=== PATIENT | female | born 1990 | race Caucasian/White ===

== ENCOUNTER → 2017-12-29 | Outpatient (CLI) | payer BC ==
[~2017-12-29] VITALS: Ht 170.2 cm; Wt 114.7 kg
[~2017-12-29] MED LIST: CLONAZEPAM 0.50.5 M1 PO; CYMBALTA60 MG PO; DEPAKOTE ER500 MG PO; LABETALOL HCL100 MG PO; LIORESAL 10 MG10 MG PO; PERCOCET 10-321 EACH PO; REMERON15 MG PO
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
[2017-12-29 09:05] VITALS: BP 110/65
== END ==
LOC: PAIN 07:44
DX: E66.01 Morbid (severe) obesity due to excess calories (principal); G47.00 Insomnia, unspecified; F32.9 Major depressive disorder, single episode, unspecified; G89.4 Chronic pain syndrome; F17.200 Nicotine dependence, unspecified, uncomplicated; E28.1 Androgen excess

== ENCOUNTER → 2018-01-26 | Outpatient (CLI) | payer BC ==
[~2018-01-26] VITALS: Ht 170.2 cm; Wt 116.4 kg
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
[2018-01-26 10:12] VITALS: BP 131/91
== END ==
LOC: PAIN 01:00
DX: G89.4 Chronic pain syndrome (principal); M79.651 Pain in right thigh; G47.00 Insomnia, unspecified; F32.9 Major depressive disorder, single episode, unspecified; E66.01 Morbid (severe) obesity due to excess calories; F17.200 Nicotine dependence, unspecified, uncomplicated; Z68.41 Body mass index [BMI] 40.0-44.9, adult; Z79.899 Other long term (current) drug therapy

== ENCOUNTER → 2018-02-23 | Outpatient (CLI) | payer BC ==
[~2018-02-23] VITALS: Ht 170.2 cm; Wt 118.8 kg
[2018-02-23 11:09] VITALS: BP 136/84
--- NOTE | 2018-02-23 11:15 | NUR ---
Pain Clinic Assessment: 1. History of Osteoarthritis: NO History of Rheumatoid Arthritis: NO 2. Height: 5 ft. 7 in. 170.2 cm. Weight: 262.0 lb. oz. 118.843 kg. Patient's BMI: 41.0 3. Vital Signs: BP: 136/84 Pulse: 74 Resp: 16 Temp: 02 Sat: 96 ECG Mon: 4. Pain Intensity: 7 5. Fall Risk: Dizziness: N Needs help standing or walking: N Fallen in the last 3 months: N Fall risk comments: 6. Patient on Blood Thinner: None 7. History of Hypertension: Y 8. Opioid Therapy greater than 6 weeks: Y Opiate Contract Signed: 12/29/17 9. Risk Assessment Tool Provided: 3-LOW RISK 10. Functional Assessment Tool: / 11. Recreational Drug Use: Past greater than 3 mos Drug Type: Tobacco Use: Current Every Day Smoker Tobacco Type: Amount or Packs/day: How Many Years: Alcohol Use: Yes Frequency: Quant:
--- NOTE | 2018-02-24 08:02 | HPC ---
[facility] [place] [address] PAIN MANAGEMENT CONSULTATION Name: LUPE MICHEL ROSSI Room #: REG TRICIA Lynn#: [id number] Admission: 02/23/18 Attend Phys: Radha Cerna Discharge: Date of : 88 Report #: [id number] THIS REPORT FOR: //name// CC: Radha CHARLESICE MERY SAUCEDO DATE OF SERVICE: 02/23/2018 CHIEF COMPLAINT: Chronic right leg pain. HISTORY OF PRESENT ILLNESS: The patient returns to the pain clinic today for refill of her medicines for her complex regional pain syndrome like symptoms in her right thigh that she has managed with her pain medicine of oxycodone 10/325. She also wanted to discuss a possible lidocaine infusion. Dr. Saucedo had mentioned this to her in the past, stating that might be helpful to see if it decreases her pain and he told her if that was the case and she had a successful treatment test of her lidocaine infusion then he would possibly move her spinal cord stimulator to a peripheral spinal cord stimulator per the patient's report. I told her that we would need to see if Dr. Saucedo's office is doing that or if he was thinking that we would do that, but we would need for her to contact him. She tells me that she has right thigh pain at 7/10, worse with riding in a car, having anything touch it. She tells me that nothing really helps this. The pain medicine helps some. She has decreased her smoking some and was walking a little bit, but with the recent weather she has been stuck in her house and not walking outside like she was and very tearful at times during this visit today. She would like a refill of her medication or an increase if possible she states or at least not a decrease in her medication. CURRENT ALLERGIES: MORPHINE. CURRENT LIST OF MEDICATIONS: Oxycodone 10/325 one-half to one tablet b.i.d., clonazepam 0.5 mg daily, Depakote ER 500 mg twice a day, labetalol 100 mg twice a day, Cymbalta 120 mg daily, mirtazapine 30 mg at bedtime and baclofen 10 mg every 6 hours. PQRS: 1. Denies history of osteoarthritis or rheumatoid arthritis. 2. Height is 5 feet 7 inches, weight is 262, BMI is 41. 3. Vital signs: Blood pressure 136/84, pulse is 74, respirations 16, oxygen sat is 96%. 4. Pain score 7/10. 5. Fall risk, denies dizziness, does not need help walking or standing, has not fallen in the last 3 months. 6. She is not on any blood thinners and does have a history of hypertension. 7. Opioid therapy is greater than 6 weeks, therefore an opioid signed contract [address] [address] PAIN MANAGEMENT CONSULTATION Name: LUPE MICHEL ROSSI Room #: REG [facility] DerikJose.#: [id number] Admission: 02/23/18 Attend Phys: Radha Cerna Discharge: Date of : 88 Report #: [id number] is on the chart. 8. Risk assessment tool is low. Her functional assessment is 56/70. 9. Recreational drug use in the past 3 months per the patient, she does smoke currently every day and she does drink occasionally alcohol. Per the prescription monitoring system, she lives in an area where it does not be reported that she is on time for her medication refill per our last visit. PHYSICAL EXAMINATION: GENERAL: This is a well-developed, well-nourished female who appears her stated age. Alert and oriented, alert at times upbeat in a lot very depressed and tearful throughout the visit. HEENT: Reveals mucous membranes that are moist. Normocephalic, atraumatic. Extraocular eye muscles are intact. NEUROLOGICAL: She complains of tenderness to the touch of right thigh, sensitive to the touch even with jeans. Strength is slightly diminished in the right leg of 4/5. ASSESSMENT: 1. Depression associated with chronic pain syndrome. 2. Unusual hypersensitivity of the right thigh, unsure if it is complex regional pain syndrome. 3. 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 4. Morbid obesity. 5. Tobacco use. 6. Insomnia. We reviewed the fact that opiate medications are being used to provide analgesia adequate to support activities of daily living, not attempting to achieve a specific pain score on the 0-10 Visual Analog Scale. The current opiate medications are providing sufficient analgesia to allow the patient to participate in activities of daily living. The patient is not exhibiting any aberrant behavior suggestive of drug diversion. The patient is not having any adverse reactions to medications. The patient is not suffering from daytime somnolence or mental acuity changes. The patient is managing opiate-induced constipation with appropriate [id number]-[id number] agents and dietary considerations. The patient was counseled on concern for caution with operating a motor vehicle while using opiate medications. A physical exam was performed and the patient's functional status was evaluated. All patients with back pain were advised against the bed rest greater than 4 days and were advised to return to normal activities. Pain score assessment was noted and the treatment plan was reviewed with the patient. All current medications, both prescribed and OTC were reviewed and reconciled on the electronic medical record. Tobacco screening was accomplished and smoking cessation was advised when indicated. BMI was noted and diet/exercise [facility] [address] [address] PAIN MANAGEMENT CONSULTATION Name: LUPE MICHEL Room #: REG [facility] M..#: [id number] Admission: 02/23/18 Attend Phys: Radha Cerna Discharge: Date of : 88 Report #: [id number] modification was recommended for all patients following outside normal parameters. I reviewed with the patient today their responsibilities to safeguard prescription medications, reviewed their responsibility to utilize medications only as prescribed by the physician. They are to seek and receive pain medications only from 1 physician group ( [facility]). They are to use 1 pharmacy and keep the clinic informed if they change pharmacies. Their responsibilities include making followup visits in a timely fashion and to avoid abrupt discontinuation of medication usage. Their responsibilities further include bringing their medications (bottles from the pharmacy with residual pills) to the visit for possible confirmation of pill counts and the patient understands it is their responsibility to submit to random drug screens to ensure both that the medications prescribed are present, and that no other controlled substances are present. All prescriptions provided today were generated electronically. PLAN: 1. The patient is here to discuss treatment options. She tells me Dr. Saucedo has mentioned to her about a lidocaine infusion to see if that helps her complex regional pain-like symptoms. I encouraged the patient to call Dr. Saucedo's office to see if he was planning on doing that or if they were wanting Dr. Gao to do that. We have no notes regarding this and we would like to have some clarification if that is with Dr. Saucedo was thinking have it sent to our office. The patient tells me that he talked about the lidocaine infusion and then if that was helpful in decreasing her pain, he talked about moving her spinal cord stimulator to a peripheral nerve stimulator to help with her symptoms. Again, I request this in writing. She is to contact Dr. Saucedo's office to have them send something. We would gladly get her approved for lidocaine infusion if that is what Dr. Saucedo request of Dr. Gao would do that to see if it is helpful. We will await paperwork from his office. 2. The patient tells me that she is having increased spasm, tearful at times. She said her CP has been well controlled. I asked her, she has been taking her baclofen 4 times a day, she says not. I encouraged her to increase her baclofen use to see if that helps with some of her spasticity. 3. The patient was tearful when discussing her pain medicine hoping that would not be decreasing it and asked if we could possibly increase it or at least leave it where it was. I explained to her that we will not increase her pain medicine, but we could keep her Percocet 10/325 at 75 pills, that allows her to take 2 every day and occasionally 3. Drug screen also collected today. 4. I encouraged the patient to decrease her smoking again, trying to wean off of it. This will help her pain, especially with her diagnosis of complex regional pain like symptoms. The patient will try to decrease her smoking even more than she has already. 5. The patient is seen in collaboration with Dr. Rohit Gao. She will return in 1 month's time. Hopefully, at that time, we will also have dictation [facility] [address] [place] [address] PAIN MANAGEMENT CONSULTATION Name: LUPE MICHEL Room #: REG TRICIA Lynn#: [id number] Admission: 02/23/18 Attend Phys: Radha Cerna Discharge: Date of : 88 Report #: [id number] or direction from Dr. Saucedo's office. The patient seen in collaboration with Dr. Rohit Gao. <ELECTRONICALLY SIGNED> By: Radha Cerna 02/24/18 0802 [id number] Radha Cerna /nt
== END ==
LOC: PAIN 07:08
DX: M25.551 Pain in right hip (principal); G89.4 Chronic pain syndrome; G47.00 Insomnia, unspecified; E66.01 Morbid (severe) obesity due to excess calories; F17.200 Nicotine dependence, unspecified, uncomplicated; F32.9 Major depressive disorder, single episode, unspecified; Z68.41 Body mass index [BMI] 40.0-44.9, adult; Z79.899 Other long term (current) drug therapy

== ENCOUNTER → 2018-03-23 | Outpatient (CLI) | payer BC ==
[~2018-03-23] VITALS: Ht 170.2 cm; Wt 121.8 kg
[2018-03-23 10:20] VITALS: BP 121/83
--- NOTE | 2018-03-23 10:37 | NUR ---
Pain Clinic Assessment: 1. History of Osteoarthritis: NO History of Rheumatoid Arthritis: NO 2. Height: 5 ft. 7 in. 170.2 cm. Weight: 268.6 lb. oz. 121.836 kg. Patient's BMI: 42.1 3. Vital Signs: BP: 121/83 Pulse: 71 Resp: 16 Temp: 02 Sat: 98 ECG Mon: 4. Pain Intensity: 7 5. Fall Risk: Dizziness: N Needs help standing or walking: N Fallen in the last 3 months: N Fall risk comments: 6. Patient on Blood Thinner: None 7. History of Hypertension: Y 8. Opioid Therapy greater than 6 weeks: Y Opiate Contract Signed: 12/29/17 9. Risk Assessment Tool Provided: 3-LOW RISK 10. Functional Assessment Tool: 11. Recreational Drug Use: Past greater than 3 mos Drug Type: Tobacco Use: Current Every Day Smoker Tobacco Type: Cigarettes Amount or Packs/day: 0.5 How Many Years: 10 Alcohol Use: Yes Frequency: Weekly Quant: 1-2 WHISKEY SHOTS
--- NOTE | 2018-03-24 07:19 | HPC ---
[facility] [place] [address] PAIN MANAGEMENT CONSULTATION Name: LUPE MICHEL Room #: REG [facility] [id number] Admission: 03/23/18 Attend Phys: Radha Cerna Discharge: Date of : 88 Report #: [id number] THIS REPORT FOR: //name// CC: Rahda ORDONEZ DATE OF SERVICE: 03/23/2018 CHIEF COMPLAINT: Chronic right leg pain. HISTORY OF PRESENT ILLNESS: The patient returns to the pain clinic today for refill of her medication of oxycodone. The patient tells me she takes 2-3 tablets a day for her right anterior thigh pain and occasional low back pain. She does tell me today that she is having pain across her lower back, upper buttock area that shoots up her back and down into her right leg. This has been going on a few days, worse when she has been walking. She tells me her pain score is about a 7 today. She does use her spinal cord stimulator. She has worse pain when riding in the car. She has not decreased her smoking. She continues to smoke about 2 cigarettes a day. She is wondering about whether we receive records from Dr. Saucedo's office regarding a lidocaine infusion. The patient would like to learn more about that and also refill of her medications. ALLERGIES: MORPHINE. CURRENT LIST OF MEDICATIONS: Oxycodone 10/325 half to one tablet 3 times a day, clonazepam 0.5 mg b.i.d. as needed, Depakote ER 500 mg twice a day, labetalol 100 mg twice a day, Cymbalta 120 mg daily, mirtazapine 30 mg at bedtime and baclofen 10 mg up to 4 times a day. The patient's PQRS, 1. Denies osteoarthritis or rheumatoid arthritis. 2. Height of 5 feet 7 inches, weight is 268, BMI is 42. 3. Vital signs, blood pressure 121/83, pulse of 71, respirations 16, oxygen sat is 98%. 4. Pain score is 7. 5. Fall risk. She denies dizziness. Does not need help walking or standing, has not fallen in the last 3 months. 6. The patient is not on any blood thinners, does take medicine for hypertension. 7. Opioid therapy is greater than 6 weeks; therefore, an opioid signed contract is on the chart. 8. Her risk assessment tool is low. Her functional assessment is 56/70. 9. The patient states recreational drug use in the past and currently smokes about 2 cigarettes a day and does drink alcohol. 10. We checked the prescription monitoring system. The patient is filling appropriately for her medications. The patient also had [place] [address] PAIN MANAGEMENT CONSULTATION Name: LUPE MICHEL Room #: REG CL Leah#: [id number] Admission: 03/23/18 Attend Phys: Radha Cerna Discharge: Date of : 88 Report #: [id number] her last visit and it is appropriate for the medications that she has told us about, the clonazepam, she takes on an as needed basis and that was negative that goes along with what the patient tells me, she does not take it every day. PHYSICAL EXAMINATION: GENERAL: This is a well-developed, well-nourished female who appears her stated age. She is alert and oriented. HEENT: Reveals mucous membranes that are moist. Normocephalic, atraumatic. Extraocular eye muscles are intact. NEUROLOGICAL: She complains of tenderness in her right upper thigh, also complains of pain across her lower back that radiates upward towards her back and down into her right leg. The patient has sensitivity to the touch on her right thigh. The patient's muscle strength is judged to be 5/5 bilaterally in all major muscle groups in her lower extremities. ASSESSMENT: 1. Depression associated with chronic pain. 2. Unusual hypersensitivity in the right thigh, unsure if it is complex regional pain syndrome. 3. Failed spinal cord stimulator, has a Nevro device that she does use occasionally. 4. Morbid obesity. 5. Tobacco use. 6. Insomnia. 7. We reviewed the fact that opiate medications are being used to provide analgesia adequate to support activities of daily living, not attempting to achieve a specific pain score on the 0-10 Visual Analog Scale. The current opiate medications are providing sufficient analgesia to allow the patient to participate in activities of daily living. The patient is not exhibiting any aberrant behavior suggestive of drug diversion. The patient is not having any adverse reactions to medications. The patient is not suffering from daytime somnolence or mental acuity changes. The patient is managing opiate-induced constipation with appropriate nqob-ndl-tibkkqk agents and dietary considerations. The patient was counseled on concern for caution with operating a motor vehicle while using opiate medications. A physical exam was performed and the patient's functional status was evaluated. All patients with back pain were advised against the bed rest greater than 4 days and were advised to return to normal activities. Pain score assessment was noted and the treatment plan was reviewed with the patient. All current medications, both prescribed and OTC were reviewed and reconciled on the electronic medical record. Tobacco screening was accomplished and smoking cessation was advised when indicated. BMI was noted and diet/exercise modification was recommended for all patients following outside normal parameters. [address] [place] [address] PAIN MANAGEMENT CONSULTATION Name: LUPE MICHEL Room #: REG Deborah Floyd.#: [id number] Admission: 03/23/18 Attend Phys: Radha DOMO [place]and Discharge: Date of : 88 Report #: [id number] I reviewed with the patient today their responsibilities to safeguard prescription medications, reviewed their responsibility to utilize medications only as prescribed by the physician. They are to seek and receive pain medications only from 1 physician group ( [facility]). They are to use 1 pharmacy and keep the clinic informed if they change pharmacies. Their responsibilities include making followup visits in a timely fashion and to avoid abrupt discontinuation of medication usage. Their responsibilities further include bringing their medications (bottles from the pharmacy with residual pills) to the visit for possible confirmation of pill counts and the patient understands it is their responsibility to submit to random drug screens to ensure both that the medications prescribed are present, and that no other controlled substances are present. All prescriptions provided today were generated electronically. PLAN: We discussed treatment options with the patient today. We did receive dictations from Dr. Saucedo's office. They would like Dr. Gao to discuss with the patient about a possible lidocaine infusion or a trial of a lateral femoral cutaneous nerve injection. I discussed these with the patient and will make an appointment with Dr. Gao for the next time. I explained to her that he may first proceed with an injection while we seek authorization for the lidocaine infusion if he thinks that is appropriate, the patient is agreeable with that. She tells me that she will have a regional intermodal truck driver that will bring her to her appointment in case she has an injection for the next visit. We will seek authorization for the lateral femoral cutaneous nerve injection right side. 8. Prescription given today for oxycodone 10/325. The patient takes 1/2-1 tablet 3 times a day, quantity #75 with no additional refills. 9. The patient seen in collaboration today with Dr. Rohit Gao. <ELECTRONICALLY SIGNED> By: Radha Cerna 03/24/18 0719 [id number] [id number] Radha Cerna /rubi
== END ==
LOC: PAIN 07:12
DX: M79.651 Pain in right thigh (principal); G89.29 Other chronic pain; R20.8 Other disturbances of skin sensation; F32.9 Major depressive disorder, single episode, unspecified; E66.01 Morbid (severe) obesity due to excess calories; G47.00 Insomnia, unspecified; K59.03 Drug induced constipation; F17.210 Nicotine dependence, cigarettes, uncomplicated; Z79.891 Long term (current) use of opiate analgesic; Z79.899 Other long term (current) drug therapy; Z68.41 Body mass index [BMI] 40.0-44.9, adult

== ENCOUNTER → 2018-04-20 | Outpatient (CLI) | payer BC ==
[~2018-04-20] VITALS: Ht 170.2 cm; Wt 122.9 kg
[~2018-04-20] MED LIST changes: +OXYCODON-ACETA1 EAC1 PO
--- NOTE | ~2018-04-20 | HPC ---
[facility] [place] [address] [place] [address] PAIN MANAGEMENT CONSULTATION Name: LUPE MICHEL Room #: REG TRICIA Lalito.#: [id number] Admission: 04/20/18 ������������������ Attend Phys: Rohit Gao MD Discharge: ������������������ Date of : 88 Report #: [id number] THIS REPORT FOR: //name// CC: NORMA Gao DATE OF SERVICE: 04/20/2018 Followup visit for chronic pain, right leg with complex regional pain syndrome. The patient is here today in the pain clinic to discuss lidocaine infusion. This was presented by Dr. Christopher Saucedo. She has a complicated history with significant biopsychosocial features to her chronic pain. Please see my original dictation from 12/29/2017. We talked about other measures of managing her pain and she has been told that this can be helpful for some patients. I shared with her our experience with lidocaine infusions. We have had selected patients who have been resistant to other treatments and lidocaine infusion provided over 6 hours has provided some lasting relief, particularly in a couple of patients with CRPS. The sodium channel blocking effect seem to have some resetting effect on chronic nerve impulses and can provide relief that she has not seen now with all of the other aggressive treatments that she has had. We will set her up for the infusion. If it helps, we can continue use it intermittently as a tool for her long-term management. I would like to avoid increasing any of her current medications. She is on oxycodone 10/325 and today I have recommended that we reduce it slightly from oxycodone 10/325, 75 tablets per month to oxycodone 7.5 three tablets that she can take one morning, noon and then at night to help her sleep. We did check drug screen at her last visit. It was positive for oxycodone and mirtazapine. There were no unsuspected entries. We will check the prescription drug monitoring program and then if no unexpected entries there either. PHYSICAL EXAMINATION: GENERAL: This is depressed female. VITAL SIGNS: Blood pressure is 124/78, heart rate 70, respirations 16. BMI is 42.4. CHEST: Clear. CARDIAC: Rhythm is regular. MUSCULOSKELETAL: Reveals tenderness along the right thigh and hypersensitivity. She is slightly weak to hip flexion, leg extension. Deep tendon reflexes are 1+ at knees, ankles, biceps and triceps. Gait has antalgic features. IMPRESSION: [facility] [address] [place] [address] PAIN MANAGEMENT CONSULTATION Name: LUPE MICHEL Room #: REG TRICIA StarkeyFloyd#: [id number] Admission: 04/20/18 ������������������ Attend Phys: Rohit Gao MD Discharge: ������������������ Date of : 88 Report #: [id number] 1. Chronic right leg pain. 2. Atypical features, but some consistency with chronic regional pain syndrome. RECOMMENDATIONS: Lidocaine infusion. We will seek preauthorization to go forward with this treatment. ��������������������������������������������� ���������������������������������������� By: ��������������������������������������������� 1741 [id number] Rohit Gao MD /rubi
[2018-04-20 10:53] VITALS: BP 124/78
--- NOTE | 2018-04-20 11:38 | NUR ---
Pain Clinic Assessment: 1. History of Osteoarthritis: NO History of Rheumatoid Arthritis: NO 2. Height: 5 ft. 7 in. 170.2 cm. Weight: 271.0 lb. oz. 122.925 kg. Patient's BMI: 42.4 3. Vital Signs: BP: 124/78 Pulse: 70 Resp: 16 Temp: 02 Sat: 97 ECG Mon: 4. Pain Intensity: 7 5. Fall Risk: Dizziness: N Needs help standing or walking: N Fallen in the last 3 months: N Fall risk comments: 6. Patient on Blood Thinner: None 7. History of Hypertension: Y 8. Opioid Therapy greater than 6 weeks: Y Opiate Contract Signed: 12/29/17 9. Risk Assessment Tool Provided: 3-LOW RISK 10. Functional Assessment Tool: 11. Recreational Drug Use: Past greater than 3 mos Drug Type: Tobacco Use: Current Every Day Smoker Tobacco Type: Cigarettes Amount or Packs/day: 2 CIGS How Many Years: Alcohol Use: Yes Frequency: Special Occasions Quant:
== END ==
LOC: PAIN 06:52
DX: M79.604 Pain in right leg (principal); G89.29 Other chronic pain; Z79.899 Other long term (current) drug therapy

== ENCOUNTER → 2018-06-22 | Outpatient (CLI) | payer BC ==
[~2018-06-22] VITALS: Ht 170.2 cm; Wt 122.9 kg
[~2018-06-22] MED LIST changes: +AMITRIPTYLINE H50 M2 PO; +OXYCODONE-ACET1 EAC2 PO
[2018-06-22 09:28] VITALS: BP 128/89
--- NOTE | 2018-06-22 09:36 | NUR ---
Pain Clinic Assessment: 1. History of Osteoarthritis: NO History of Rheumatoid Arthritis: NO 2. Height: 5 ft. 7 in. 170.2 cm. Weight: 271.0 lb. oz. 122.925 kg. Patient's BMI: 42.4 3. Vital Signs: BP: 128/89 Pulse: 80 Resp: 16 Temp: 02 Sat: 98 ECG Mon: 4. Pain Intensity: 9 5. Fall Risk: Dizziness: N Needs help standing or walking: N Fallen in the last 3 months: N Fall risk comments: 6. Patient on Blood Thinner: None 7. History of Hypertension: Y 8. Opioid Therapy greater than 6 weeks: Y Opiate Contract Signed: 12/29/17 9. Risk Assessment Tool Provided: 3-LOW RISK 10. Functional Assessment Tool: / 11. Recreational Drug Use: Past greater than 3 mos Drug Type: Tobacco Use: Current Every Day Smoker Tobacco Type: Amount or Packs/day: How Many Years: Alcohol Use: Yes Frequency: Quant:
--- NOTE | 2018-06-23 07:53 | HPC ---
[facility] [place] [address] PAIN MANAGEMENT CONSULTATION Name: LUPE MICHEL Room #: REG [facility] Leah#: [id number] Admission: 06/22/18 ������������������ Attend Phys: Radha Cerna Discharge: ������������������ Date of : 88 Report #: [id number] THIS REPORT FOR: //name// CC: Radha Saucedo MD DATE OF SERVICE: 06/22/2018 CHIEF COMPLAINT: Chronic pain, right leg with complex regional pain syndrome. HISTORY OF PRESENT ILLNESS: This is a 27-year-old female who returns to the pain clinic today for refill of her medications. She tells me that her pain is slightly worse today than it had been in the past, rating it as a 9 today. She feels that the lidocaine infusion that Dr. Gao performed in April made her symptoms worse. She feels that her right thigh and one particular area is on fire ever since her lidocaine infusion. She tells me that it is a burning, shooting, sharp pain, worse with riding in the car, cold weather and movement. She does use her medications that she finds very beneficial and helps knock her pain down and able to function. She understands that she will not be 100%, but she says "I am better when I do take my pain medicines." She does also use her spinal cord stimulator to aid in pain control. The patient tells me that she denies any problems with constipation or daytime sleepiness. She does question if Botox would be helpful in treating this leg pain. Her mom was wondering about that. ALLERGIES: MORPHINE. CURRENT PAIN MEDICATIONS: Oxycodone 10/325 up to 3 times a day p.r.n., amitriptyline 50 mg at bedtime, clonazepam 0.5 mg b.i.d., Depakote ER 500 mg b.i.d., labetalol 100 mg b.i.d., Cymbalta 120 mg daily, mirtazapine 30 mg at bedtime and baclofen 10 mg p.r.n. PQRS: 1. She denies any history of osteoarthritis or rheumatoid arthritis. 2. Height is 5 feet 7 inches, weight is 271. BMI is 42. 3. Vital signs 128/89, pulse is 80, respirations 16, oxygen sat is 98. 4. Pain score is 9/10. 5. Fall risk. Denies dizziness. Does not need help walking or standing. Has not fallen in the last 3 months. She is not on any blood thinners, but does take medicine for hypertension. 6. Opioid therapy is greater than 6 weeks; therefore, an opioid signed contract is on the chart. 7. Her risk assessment tool is low. Her functional assessment is 56/70. 8. Recreational drug use, she denies. She is a smoker of 2 cigarettes a day [place] [address] PAIN MANAGEMENT CONSULTATION Name: LUPE MICHEL Room #: REG [facility] Lynn#: [id number] Admission: 06/22/18 ������������������ Attend Phys: Radha Cerna Discharge: ������������������ Date of : 88 Report #: [id number] We did check the prescription monitoring system. The patient is due on Friday to fill her medications from her recent early fill for a vacation in the last month. There is a recent drug screen on the chart, which is appropriate. The patient tells me she does safeguard her medications at all times. PHYSICAL EXAMINATION: GENERAL: This is a 27-year-old female who appears her stated age, placing her pain score today at 9/10, slightly depressed in affect. HEENT: Normocephalic, atraumatic. Extraocular eye muscles are intact. Mucous membranes are moist. EXTREMITIES: Reveals tenderness on her right thigh and hypersensitivity. Her gait is antalgic. The patient does have some lower back pain that radiates towards her right thigh as well. Muscle strength is judged to be 5/5 bilaterally in all major muscle groups in her lower extremities. IMPRESSION: 1. Chronic leg pain. 2. Atypical features, some consistency of complex regional pain syndrome of the right thigh. 3. Failed spinal cord stimulator, has a Nevro device. 4. Morbid obesity. 5. Tobacco use. We reviewed the fact that opiate medications are being used to provide analgesia adequate to support activities of daily living, not attempting to achieve a specific pain score on the 0-10 Visual Analog Scale. The current opiate medications are providing sufficient analgesia to allow the patient to participate in activities of daily living. The patient is not exhibiting any aberrant behavior suggestive of drug diversion. The patient is not having any adverse reactions to medications. The patient is not suffering from daytime somnolence or mental acuity changes. The patient is managing opiate-induced constipation with appropriate ksin-xka-yrmiqfd agents and dietary considerations. The patient was counseled on concern for caution with operating a motor vehicle while using opiate medications. A physical exam was performed and the patient's functional status was evaluated. All patients with back pain were advised against the bed rest greater than 4 days and were advised to return to normal activities. Pain score assessment was noted and the treatment plan was reviewed with the patient. All current medications, both prescribed and OTC were reviewed and reconciled on the electronic medical record. Tobacco screening was accomplished and smoking cessation was advised when indicated. BMI was noted and diet/exercise modification was recommended for all patients following outside normal parameters. [facility] [address] [place] [address] PAIN MANAGEMENT CONSULTATION Name: LUPE MICHEL Room #: REG [facility].#: [id number] Admission: 06/22/18 ������������������ Attend Phys: Radha DOMO Cerna Discharge: ������������������ Date of : 88 Report #: [id number] I reviewed with the patient today their responsibilities to safeguard prescription medications, reviewed their responsibility to utilize medications only as prescribed by the physician. They are to seek and receive pain medications only from 1 physician group ( [facility]). They are to use 1 pharmacy and keep the clinic informed if they change pharmacies. Their responsibilities include making followup visits in a timely fashion and to avoid abrupt discontinuation of medication usage. Their responsibilities further include bringing their medications (bottles from the pharmacy with residual pills) to the visit for possible confirmation of pill counts and the patient understands it is their responsibility to submit to random drug screens to ensure both that the medications prescribed are present, and that no other controlled substances are present. All prescriptions provided today were generated electronically. PLAN: 1. We discussed treatment options with the patient today. Unfortunately, the lidocaine infusion that Dr. Saucedo had wanted us to try did not need help the patient. In fact, it possibly made her pain increased and has had a flare since the procedure in April. The patient has not made a followup appointment with Dr. Saucedo yet. I encouraged her to do so to see what other options he may recommend. At one point, she did mention that he was discussing repositioning her spinal cord stimulator. Again, she will make an appointment with him in the near future. 2. The patient did ask about Botox seeing if that would help this nerve pain. I explained to her that usually Botox is used for muscles or migraines, or cosmetic. I am unaware that that would help with this nerve issue that she is having. 3. The patient's scripts given to her today for oxycodone 10/325 t.i.d., #75 to release today and in 4 weeks. The patient takes a half to 1 pill a day. We encouraged the use of sparingly lowest most effective dose and to increase activity as she is able. The patient tells me some days she is only requiring 2 pills a day. 4. We did talk about smoking cessation. She is down to 2 cigarettes a day. We discussed behavior modification and changing her after meal routine, which is when she typically smokes her cigarettes to see if she is able to alter that behavior and quit the last 2 cigarettes that she smokes per day. 5. Dr. Rohit Gao did see the patient and collaborated care today. The patient will be seen in 2 months' time. Hopefully, she will have seen Dr. Saucedo at that time. ��������������������������������������������� <ELECTRONICALLY SIGNED> ���������������������������������������� By: Radha Cerna ��������������������������������������������� 06/23/18 [id number] Radha Cerna /nt
== END ==
LOC: PAIN 06:40
DX: G89.4 Chronic pain syndrome (principal); M79.604 Pain in right leg; E66.01 Morbid (severe) obesity due to excess calories; F17.200 Nicotine dependence, unspecified, uncomplicated; Z68.41 Body mass index [BMI] 40.0-44.9, adult

== ENCOUNTER → 2018-08-17 | Outpatient (CLI) | payer BC ==
[~2018-08-17] VITALS: Ht 170.2 cm; Wt 121.7 kg
[2018-08-17 13:35] VITALS: BP 114/77
--- NOTE | 2018-08-17 13:58 | NUR ---
Pain Clinic Assessment: 1. History of Osteoarthritis: NO History of Rheumatoid Arthritis: NO 2. Height: 5 ft. 7 in. 170.2 cm. Weight: 268.4 lb. oz. 121.746 kg. Patient's BMI: 42.0 3. Vital Signs: BP: 114/77 Pulse: 69 Resp: 16 Temp: 02 Sat: 97 ECG Mon: 4. Pain Intensity: 9-10 5. Fall Risk: Dizziness: N Needs help standing or walking: N Fallen in the last 3 months: Y Fall risk comments: 6. Patient on Blood Thinner: None 7. History of Hypertension: Y 8. Opioid Therapy greater than 6 weeks: Y Opiate Contract Signed: 12/29/17 9. Risk Assessment Tool Provided: 3-LOW RISK 10. Functional Assessment Tool: / 11. Recreational Drug Use: Past greater than 3 mos Drug Type: Tobacco Use: Current Every Day Smoker Tobacco Type: Amount or Packs/day: How Many Years: Alcohol Use: Yes Frequency: Quant:
--- NOTE | 2018-08-19 10:06 | HPC ---
[facility] [place] [address] PAIN MANAGEMENT CONSULTATION Name: ANANDLUPE ROSSI Room #: REG TRICIA Lynn#: [id number] Admission: 08/17/18 ������������������ Attend Phys: Radha Cerna Discharge: ������������������ Date of : 88 Report #: [id number] THIS REPORT FOR: //name// CC: Radha CHARLESICE MERY DATE OF SERVICE: 08/17/2018 CHIEF COMPLAINT: Chronic pain of her right leg with complex regional pain syndrome. HISTORY OF PRESENT ILLNESS: This is a 27-year-old female who returns to the pain clinic today for refill of her medications. She tells me that her pain is slightly worse, 9/10 today due to a recent fall. She landed on her spinal cord stimulator and several other areas and she had increased pain since then in her lower back and her right thigh. She did call [facility] and they did check her system and is working fine. She has a burning, shooting and sharp pain in her right thigh and her lower back. She tells me that her pain is worse with riding in the car and movement. Pain is controlled with her spinal cord stimulator that she uses every day all day long and her medications. She denies any feelings of being overly medicated or problems with constipation. The patient tells me that she is going to [place] later in this week for 10 days. She is requesting an early refill by 2 days for her medications and also wondering how she should deal with her spinal cord stimulator when she travels. The patient is going to see Dr. Christopher Saucedo in October for possible revision of her spinal cord stimulator. ALLERGIES: MORPHINE. CURRENT LIST OF MEDICATIONS: Oxycodone 10/325 half to one tablet 3 times a day p.r.n., amitriptyline 50 mg at bedtime, clonazepam 0.5 mg b.i.d., Depakote ER 500 mg b.i.d., Trandate 100 mg b.i.d., Cymbalta 120 mg daily, Remeron 30 mg at bedtime and baclofen 10 mg p.r.n. PQRS: 1. She denies any history of osteoarthritis or rheumatoid arthritis. 2. Height is 5 feet 7 inches, weight is 268, BMI is 42. 3. Vital signs: Blood pressure 114/77, pulse is 69, respirations 16, oxygen sat is 97%. 4. Pain score 9/10. 5. Denies dizziness. She does not need help with walking or standing and has fallen in the last 3 months. 6. The patient is not on any blood thinners, but does take medications for hypertension. 7. Opioid therapy is greater than 6 weeks; therefore, an opioid signed contract [address] [address] PAIN MANAGEMENT CONSULTATION Name: ANANDLUPE [id number] Admission: 08/17/18 ������������������ Attend Phys: Radha Cerna Discharge: ������������������ Date of : 88 Report #: [id number] is on the chart. Her risk assessment tool is low. Functional assessment is 56/70. 8. Recreational drug use in the past, current smoker and does drink alcohol. We did not locate a prescription monitoring system, but we did speak with her pharmacy and they verified that she is filling there appropriately. There is a recent drug screen on the chart as well that is appropriate for her medications. PHYSICAL EXAMINATION: GENERAL: This is a 27-year-old female who appears her stated age. Placing her pain score today at 9/10, slightly depressed in her affect. HEENT: Normocephalic, atraumatic. Extraocular eye muscles are intact. Mucous membranes are moist. EXTREMITIES: Reveal tenderness in her right thigh and hypersensitivity, some electrical feelings. She has a slightly antalgic gait. Lower back pain radiates into her right thigh. Muscle strength is judged to be 5/5 bilaterally in all major muscle groups in her lower extremities. IMPRESSION: 1. Chronic leg pain. 2. Atypical features, some consistency with complex regional pain syndrome of the right thigh. 3. Spinal cord stimulator, has a Nevro device. 4. Morbid obesity. 5. Tobacco use. We reviewed the fact that opiate medications are being used to provide analgesia adequate to support activities of daily living, not attempting to achieve a specific pain score on the 0-10 Visual Analog Scale. The current opiate medications are providing sufficient analgesia to allow the patient to participate in activities of daily living. The patient is not exhibiting any aberrant behavior suggestive of drug diversion. The patient is not having any adverse reactions to medications. The patient is not suffering from daytime somnolence or mental acuity changes. The patient is managing opiate-induced constipation with appropriate canh-coo-wqepfxd agents and dietary considerations. The patient was counseled on concern for caution with operating a motor vehicle while using opiate medications. A physical exam was performed and the patient's functional status was evaluated. All patients with back pain were advised against the bed rest greater than 4 days and were advised to return to normal activities. Pain score assessment was noted and the treatment plan was reviewed with the patient. All current medications, both prescribed and OTC were reviewed and reconciled on the electronic medical record. Tobacco screening was accomplished and smoking cessation was advised when indicated. BMI was noted and diet/exercise modification was recommended for all patients following outside normal [address] [address] PAIN MANAGEMENT CONSULTATION Name: LUPE MICHEL Room #: REG [facility].#: [id number] Admission: 08/17/18 ������������������ Attend Phys: Radha Cerna Discharge: ������������������ Date of : 88 Report #: [id number] parameters. I reviewed with the patient today their responsibilities to safeguard prescription medications, reviewed their responsibility to utilize medications only as prescribed by the physician. They are to seek and receive pain medications only from 1 physician group ( [facility]). They are to use 1 pharmacy and keep the clinic informed if they change pharmacies. Their responsibilities include making followup visits in a timely fashion and to avoid abrupt discontinuation of medication usage. Their responsibilities further include bringing their medications (bottles from the pharmacy with residual pills) to the visit for possible confirmation of pill counts and the patient understands it is their responsibility to submit to random drug screens to ensure both that the medications prescribed are present, and that no other controlled substances are present. All prescriptions provided today were generated electronically. PLAN: 1. We discussed treatment options with the patient today. The patient is going on vacation and is requesting early refill of her medications. We will release that 2 days early, which is still prior to her leaving for her vacation. We did explain to her that she will need to make her medications last just because she received them early, they still need to last 30 days from the last time she filled her medication, so therefore, she will not be due until 09/24/2018 for her next refill of her prescriptions. The patient verbalizes understanding. 2. I encouraged the patient to make sure she had her Nevro spinal cord stimulator device card with her and to carry on her recharging device with her when she goes through security and to have her spinal cord stimulator off when she goes through security. She verbalizes understanding and she thought about not taking it, but I reminded her that with her use currently of almost 24 hours a day if she went without her spinal cord device for 10 days, her pain would significantly increase. 3. Prescriptions given today for her oxycodone #75 for today release and 4-week release. 4. I discussed this patient with Dr. Justino Barr who collaborated care today who is covering for Dr. Rohit Gao. ��������������������������������������������� <ELECTRONICALLY SIGNED> ���������������������������������������� By: Radha Cerna ��������������������������������������������� 08/19/18 [id number] Radha Cerna /nt
== END ==
LOC: PAIN 10:32
DX: G90.521 Complex regional pain syndrome I of right lower limb (principal); E66.01 Morbid (severe) obesity due to excess calories; F17.210 Nicotine dependence, cigarettes, uncomplicated; Z68.41 Body mass index [BMI] 40.0-44.9, adult

== ENCOUNTER → 2018-10-05 | Outpatient (CLI) | payer BC ==
[~2018-10-05] VITALS: Ht 170.2 cm; Wt 117.0 kg
--- NOTE | ~2018-10-05 | HPC ---
[facility] [place] [place] [address] PAIN MANAGEMENT CONSULTATION Name: LUPE MICHEL Room #: REG [facility].#: [id number] Admission: 10/05/18 Attend Phys: Rohit Gao MD Discharge: Date of : 88 Report #: [id number] THIS REPORT FOR: //name// CC: NORMA Gao DATE OF SERVICE: 10/05/2018 Followup visit for chronic right leg pain with possible complex regional pain syndrome. Reported history of cerebral palsy. The patient returns to pain clinic today in followup for her opioid medication. She has chronic right leg pain. She has had a spinal cord stimulator placed, but has honestly not had a substantial time and adjustment to determine whether it is providing relief. Dr. Saucedo has considered even repositioning her leads. She has only had a couple of adjustments. I have suggested today to her that we get Diana back involved so that we can try to work through some protocols and see if we can get the stimulator to provide relief in her leg. She scores her daily leg pain is an 8/10. We tried a lidocaine infusion that was helpful only for moments. Pain was never substantially reduced by this treatment. Overall, she is having some good days and bad days. She typically walks in the morning or evening depending on the weather. She says she does this 4 times a week as I have recommended. She walks about a mile to her mother's house. She finds that taking oxycodone before she exercises is important and helpful. I have discussed with her smoking and she has dropped her tobacco use dramatically, but continues to smoke she says 1 cigarette every other day or so. I have told her it is time that she should quit. She is . She and her occasionally drink alcohol. She does this in a social setting. She does not appear to over-utilize alcohol. She does not have good diversion activities from what I can tell. I have encouraged her to seek out opportunities that will allow her to be more active without focusing on her pain. PHYSICAL EXAMINATION: GENERAL: She seems better to me today actually she was more conversant less emotional more than I remember seeing her in the past. She smiled more and was more responsive during conversations. VITAL SIGNS: Height is 5 feet 7 inches, weight 258 pounds, BMI is 40.4. [address] [address] PAIN MANAGEMENT CONSULTATION Name: LUPE MICHEL Room #: REG TR[facility]IA [facility].#: [id number] Admission: 10/05/18 Attend Phys: Rohit Gao MD Discharge: Date of : 89 Report #: [id number] pressure is 125/81, heart rate 70, respirations 16, O2 sat 98. She moves independently from sitting to standing position. Her gait is mildly antalgic. CHEST: Clear. CARDIAC: Rhythm is regular. ABDOMEN: Soft. There is no organomegaly. MUSCULOSKELETAL: Examination of the right leg reveals some allodynia across the top of her thigh in the L3-L4 distribution. There is no straight leg raising discomfort. Sensation is intact. She has small scars in the back from previous placement of spinal cord stimulator. They are nontender. All medications were reviewed and reconciled. She is on 3 antidepressants. I have asked her to discuss this with her psychiatrist. She is on Cymbalta, Remeron and amitriptyline as well as Depakote, clonazepam, oxycodone and baclofen. This high number of centrally acting drugs, I think, is a concern and we should work at tapering. I would taper drugs of similar classes. Should we continue the opioids? I believe so. I think that they are providing relief of her pain enough to allow her to be more physically active, which I think is critical to her recovery. Without them, she does not move. Her dose is in the moderate range taking on average 2-1/2 oxycodone 10 mg tablets per day. This equates to 25 mg of oxycodone or roughly 40 morphine milligram equivalents. She carefully safeguards her medication and is grateful for the relief that it provides. She denies any side effects. PLAN: Medications were renewed under terms of our written agreement. Urine drug screen reviewed, which was positive for medications prescribed oxycodone and mirtazapine. There was absence, however, of clonazepam, which is provided by her psychiatrist. She was given 20 minutes of consultation today regarding wellness behaviors and activities. Encouraged her towards optimism and towards meaningful life activities. We talked about things that are in her control and things that are out of her control. We can control her cerebral palsy. We cannot control previous injuries. We can control, however, tobacco, exercise, diet and activities. Plan to continue counseling and encouragement at followup visit in 2 months. By: 1302 11 Rohit Gao MD /nt
[2018-10-05 09:33] VITALS: BP 125/81
--- NOTE | 2018-10-05 09:45 | NUR ---
Pain Clinic Assessment: 1. History of Osteoarthritis: NO History of Rheumatoid Arthritis: NO 2. Height: 5 ft. 7 in. 170.2 cm. Weight: 258.0 lb. oz. 117.028 kg. Patient's BMI: 40.4 3. Vital Signs: BP: 125/81 Pulse: 70 Resp: 16 Temp: 02 Sat: 98 ECG Mon: 4. Pain Intensity: 8 5. Fall Risk: Dizziness: N Needs help standing or walking: N Fallen in the last 3 months: N Fall risk comments: 6. Patient on Blood Thinner: None 7. History of Hypertension: Y 8. Opioid Therapy greater than 6 weeks: Y Opiate Contract Signed: 12/29/17 9. Risk Assessment Tool Provided: 3-LOW RISK 10. Functional Assessment Tool: 11. Recreational Drug Use: Past greater than 3 mos Drug Type: Tobacco Use: Current Every Day Smoker Tobacco Type: Cigarettes Amount or Packs/day: 1 cig q 2day How Many Years: 10 Alcohol Use: Yes Frequency: Weekly Quant: 1 shot every now and then per pt
== END ==
LOC: PAIN 06:51
DX: M79.604 Pain in right leg (principal); Z79.891 Long term (current) use of opiate analgesic

== ENCOUNTER → 2018-11-19 | Outpatient (CLI) | payer OTHER, BC ==
[~2018-11-19] VITALS: Ht 170.2 cm; Wt 115.5 kg
[~2018-11-19] MED LIST changes: +ALEVE220 M1 PO; +IBUPROFEN200 MG PO; +TYLENOL EXTRA500 MG PO
--- NOTE | ~2018-11-19 | HPC ---
[facility] [address] [place] [address] PAIN MANAGEMENT CONSULTATION Name: LUPE MICHEL Room #: REG TRICIA Lalito.#: [id number] Admission: 11/19/18 Attend Phys: Rohit Gao MD Discharge: Date of : 88 Report #: [id number] THIS REPORT FOR: //name// CC: NORMA Gao DATE OF SERVICE: 11/19/2018 Followup visit for chronic pain. The patient presents to the pain clinic today in tears complaining of pain in her right arm. Her normal pain is in her low back with radiculopathy. She has a spinal cord stimulator in place. She has, in the past, been on higher doses of opioids. We have been trying to maintain her at a lower dose and have limited her oxycodone use to 2-1/2 tablets per day over the course of the last 6 months. She reports that during some fairly basic and simple things, she injured her right shoulder. She was simply reaching and also carrying a bag with some groceries that broke. There was no significant trauma associated with her new pain. There has, however, been emotional trauma. Within the last month and a half, she has completely from her and moved into an apartment. She is now there with just her cats. She does not work. She does not have outside interests. It is hard for her to define what she does throughout the day. The chart reflects that she has multiple other psychiatric issues and sees a weekly psychologist and a monthly psychiatrist who help manage her other centrally acting medications beyond her pain medication. She has driving anxiety and generalized anxiety of all sorts. I did ask her about social contacts. She has met the older lady across the [place], who walks her dog. She seems to have struck up an early friendship with her. We discussed, at the end of our visit, some therapeutic nonpharmacologic goals, including reaching out to others. She has had some physical therapy, does not think it is helping much. She has had a Dosepak, also does not feel that that has been helpful. She has been taking a bit more oxycodone without discussing it with us first. She has been taking up to 3 per day. She will run out of medications around 11/29/2018 because of her increased pain medication use. We discussed this at great length. She reports the medication is helpful with her physical and likely with their emotional pain as well. She does not have side effects. She [facility] [address] [place] [address] PAIN MANAGEMENT CONSULTATION Name: LUPE MICHEL Room #: REG [facility].#: [id number] Admission: 11/19/18 Attend Phys: Rohit Gao MD Discharge: Date of : 88 Report #: [id number] carefully safeguards her medication. I am fairly confident that she is not diverting the medications or losing them. She needs them for her own use. We have performed drug screens in the past. I talked to her about smoking. For the 1 positive of this visit, she has remained off of tobacco now for 3 weeks. We had a good long discussion reinforcing her continuing efforts to stay off of tobacco and I have given her instructions and ideas to make sure that she does not restart. She continues to drink alcohol on occasion, but this is limited and not in great amounts. I have cautioned her about the number of centrally acting medications she takes and their interaction with the alcohol. She is off the benzodiazepine, Klonopin, nearly 3-4 months, she says, since she has had one. She continues to take multiple other centrally acting medications and psychiatric medications reviewed on her prescription drug monitoring information. She is also taking jtyf-cku-ovpzfzm nonsteroidal anti-inflammatory drugs at fairly high doses, and we discussed the potential for GI problems and renal issues, particularly in light of polypharmacy. She will monitor her use of those medications carefully as well. PHYSICAL EXAMINATION: She is 5 feet 7 inches, 254 pounds, BMI of 39.9. We discussed weight loss. Blood pressure 120/83, heart rate 72, respirations 16, O2 sat 98. She moves independently from sitting to standing position and walks with a stable gait. She does not appear to be a fall risk. She scores her pain as a 9/10. She denies joint pain other than her right shoulder. She is currently not on a blood thinner. HEENT: Normal. Pupils equal, round, react to light. EOMs are intact. Mucous membranes are moist. NECK: Shows some pain in range of motion, particularly with neck extension, but she has about 80-90% range of motion in all planes. She has diffuse tenderness throughout the back in the lumbosacral, thoracic and cervical region. She has tenderness throughout the trapezius. CHEST: Clear to auscultation. CARDIAC: Rhythm is regular. ABDOMEN: Obese. EXTREMITIES: Examination of the upper extremities reveals pain with internal and particularly with external rotation of the right shoulder. There is localized tenderness anteriorly at the acromioclavicular joint. There is no crepitus, although she reports that she feels a popping sensation. There is no effusion appreciated, but she is morbidly obese. Sensation is diminished slightly along the outer aspect of her right arm and into the thumb and index finger along the C6 or radial distribution. Pulses are full and equal. There are no skin or color changes. X-rays available are plain films of the shoulder, which showed no fracture or [facility] [address] [place] [address] PAIN MANAGEMENT CONSULTATION Name: LUPE MICHEL Room #: REG [facility].#: [id number] Admission: 11/19/18 Attend Phys: Rohit Gao MD Discharge: Date of : 88 Report #: [id number] dislocation. 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 This is a bit high for typical placement of a stimulator for lumbosacral pain. IMPRESSION: 1. Chronic intractable pain, now with new pain generator, right shoulder. 2. Chronic leg pain, possibly complex regional pain syndrome with spinal cord stimulator, which is modestly helpful. 3. Morbid obesity. 4. Recent injury, right shoulder, likely soft tissue. Further imaging not necessary. 5. Management of high-risk medications under terms of an opioid agreement. PLAN: I will allow her to continue on her oxycodone and we will refill her next prescription on 11/29/2018 a bit early because she will be out with her increased use of medication. She should then resume back to her current recommendation of no more than 2-1/2 tablets a day. This calculates to a morphine milligram equivalent of about 30 MME. We reviewed our opioid agreement and requirement for ongoing care. Time spent with the patient about 45 minutes. By: [id number] Rohit Gao MD /nt
[2018-11-19 10:20] VITALS: BP 120/83
--- NOTE | 2018-11-19 10:36 | NUR ---
Pain Clinic Assessment: 1. History of Osteoarthritis: NO History of Rheumatoid Arthritis: NO 2. Height: 5 ft. 7 in. 170.2 cm. Weight: 254.6 lb. oz. 115.486 kg. Patient's BMI: 39.9 3. Vital Signs: BP: 120/83 Pulse: 72 Resp: 16 Temp: 02 Sat: 98 ECG Mon: 4. Pain Intensity: 9 5. Fall Risk: Dizziness: N Needs help standing or walking: N Fallen in the last 3 months: N Fall risk comments: 6. Patient on Blood Thinner: None 7. History of Hypertension: Y 8. Opioid Therapy greater than 6 weeks: Y Opiate Contract Signed: 12/29/17 9. Risk Assessment Tool Provided: 3-LOW RISK 10. Functional Assessment Tool: 11. Recreational Drug Use: Past greater than 3 mos Drug Type: Tobacco Use: Former Smoker Tobacco Type: Amount or Packs/day: How Many Years: Alcohol Use: Yes Frequency: Quant:
== END ==
LOC: PAIN 06:52
DX: G89.4 Chronic pain syndrome (principal); E66.01 Morbid (severe) obesity due to excess calories; Z79.891 Long term (current) use of opiate analgesic

== ENCOUNTER → 2018-12-14 | Outpatient (CLI) | payer OTHER, BC ==
[~2018-12-14] VITALS: Ht 170.2 cm; Wt 116.5 kg
--- NOTE | ~2018-12-14 | HPC ---
[facility] [place] [address] [place] [address] PAIN MANAGEMENT CONSULTATION Name: LUPE MICHEL Room #: REG TRICIA Lalito.#: [id number] Admission: 12/14/18 Attend Phys: Rohit Gao MD Discharge: Date of : 88 Report #: [id number] THIS REPORT FOR: //name// CC: NORMA Gao DATE OF SERVICE: 12/14/2018 Followup visit for chronic intractable pain, right shoulder and complex regional pain syndrome. The patient returns to pain clinic today in followup. I saw her last on 11/19/2018 for an extended visit. She is better today. Her affect is more pleasant. She seems more optimistic. I discussed multiple issues in her dictation and note on 11/19/2018 that were impacting her pain including multiple psychosocial issues. PQRS: Reviewed today. 1. Denies history of osteoarthritis. 2. Obese with a BMI of 40.2. 3. Blood pressure 109/76, heart rate 80. 4. Pain intensity 8-910. 5. She denies falling or fall risk. 6. No blood thinners. 7. History of hypertension is positive. 8. Opioid agreement signed in 2018. 9. She is at low risk, scoring a 3 on her opioid risk tool. 10. Functional assessment score 56, still a very high impact pain score. 11. Denies use of tobacco! She has stayed off of cigarettes now since her last visit and she was given encouragement. She also denies using alcohol more than once or twice a week. PHYSICAL EXAMINATION: GENERAL: Pleasant. Today, she did not cry and seemed much calmer. NECK: Supple. Range of motion is improved. CHEST: Clear. CARDIAC: Rhythm is regular. ABDOMEN: Obese. EXTREMITIES: She has some ongoing pain in the right shoulder with internal and external rotation with localized tenderness of the acromioclavicular joint. MUSCULOSKELETAL: Low back is tender. Neuro stimulator lead in the upper thoracic region. Straight leg raising pain is present bilaterally and unchanged. IMPRESSION: [facility] [address] [place] [address] PAIN MANAGEMENT CONSULTATION Name: ANANDLUPE Room #: REG [facility] Dee.#: [id number] Admission: 12/14/18 Attend Phys: Rohit Gao MD Discharge: Date of : 88 Report #: [id number] 1. Chronic intractable pain, multiple pain generators. 2. Morbid obesity. 3. Management of high risk medications under terms of written opioid agreement. 4. She is on a modest MME using oxycodone 10/325, 2-1/2 tablets per day. This calculates to an MME of 37.5. I will continue to provide the medication for her under terms of our agreement. Her most recent drug screen was performed in February of 2018. I will continue to perform these tests as necessary per terms of our agreement. Her medications are filled at a pharmacy that does not show up on the [facility] prescription drug monitoring program. By: [id number] Rohit Gao MD /rubi
[2018-12-14 10:40] VITALS: BP 109/76
--- NOTE | 2018-12-14 10:55 | NUR ---
Pain Clinic Assessment: 1. History of Osteoarthritis: NO History of Rheumatoid Arthritis: NO 2. Height: 5 ft. 7 in. 170.2 cm. Weight: 256.8 lb. oz. 116.484 kg. Patient's BMI: 40.2 3. Vital Signs: BP: 109/76 Pulse: 80 Resp: 16 Temp: 02 Sat: 96 ECG Mon: 4. Pain Intensity: 8-9 5. Fall Risk: Dizziness: N Needs help standing or walking: N Fallen in the last 3 months: N Fall risk comments: 6. Patient on Blood Thinner: None 7. History of Hypertension: Y 8. Opioid Therapy greater than 6 weeks: Y Opiate Contract Signed: 12/29/17 9. Risk Assessment Tool Provided: 3-LOW RISK 10. Functional Assessment Tool: 11. Recreational Drug Use: Past greater than 3 mos Drug Type: Tobacco Use: Former Smoker Tobacco Type: Amount or Packs/day: How Many Years: Alcohol Use: Yes Frequency: Weekly Quant: 1-2
== END ==
LOC: PAIN 06:49
DX: G89.4 Chronic pain syndrome (principal); E66.01 Morbid (severe) obesity due to excess calories; Z79.899 Other long term (current) drug therapy

== ENCOUNTER → 2019-02-15 | Outpatient (CLI) | payer OTHER, BC ==
[~2019-02-15] VITALS: Ht 170.2 cm; Wt 114.3 kg
[2019-02-15 10:06] VITALS: BP 104/53
--- NOTE | 2019-02-15 10:16 | NUR ---
Pain Clinic Assessment: 1. History of Osteoarthritis: NO History of Rheumatoid Arthritis: NO 2. Height: 5 ft. 7 in. 170.2 cm. Weight: 252.0 lb. oz. 114.307 kg. Patient's BMI: 39.5 3. Vital Signs: BP: 104/53 Pulse: 72 Resp: 16 Temp: 02 Sat: 99 ECG Mon: 4. Pain Intensity: 9-10 5. Fall Risk: Dizziness: N Needs help standing or walking: N Fallen in the last 3 months: N Fall risk comments: 6. Patient on Blood Thinner: None 7. History of Hypertension: Y 8. Opioid Therapy greater than 6 weeks: Y Opiate Contract Signed: 12/29/17 9. Risk Assessment Tool Provided: 3-LOW RISK 10. Functional Assessment Tool: 11. Recreational Drug Use: Past greater than 3 mos Drug Type: Tobacco Use: Current Some Day Smoker Tobacco Type: Cigarettes Amount or Packs/day: 3 CIGS How Many Years: Alcohol Use: Yes Frequency: Special Occasions Quant:
--- NOTE | 2019-02-16 13:37 | HPC ---
[facility] [place] [address] PAIN MANAGEMENT CONSULTATION Name: LUPE MICHEL Room #: REG TRICIA Lynn#: [id number] Admission: 02/15/19 Attend Phys: Radha Cerna Discharge: Date of : 89 Report #: [id number] THIS REPORT FOR: //name// CC: Radha Gao MD DATE OF SERVICE: 02/15/2019 CHIEF COMPLAINT: Chronic intractable pain and complex regional pain syndrome. HISTORY OF PRESENT ILLNESS: The patient returns to the pain clinic today for followup visit for her medications. She seems upbeat and smiling today. She reports that she had had a good holiday season except that she had forgotten her spinal cord stimulator charging component and when she went out of town to [place], she said the last 3 days of her trip, she had increased pain because her battery had stopped working. She realized then how helpful and beneficial her spinal cord stimulator device is for her right thigh pain today. Today the patient reports the pain score of 9/10. It is an aching, burning pain. It is always worse after riding in the car and cold weather, but she feels that her medications are beneficial as well as her spinal cord stimulator. The patient does report that the medications that she received the last month were from a different industrial laborer. She was unable to split those easily like she had in the past. She has since gotten a pill cutter, which has been helpful, but she is going to request to have her previous industrial laborer for the next prescription that she fills next week. ALLERGIES: MORPHINE. CURRENT LIST OF MEDICATIONS: Clonazepam 0.5 mg b.i.d., oxycodone 10/325, 1 tablet 3 times a day p.r.n., Aleve, Tylenol, amitriptyline, Depakote, labetalol, Cymbalta and Remeron. PQRS: 1. She denies any osteoarthritis or rheumatoid arthritis. 2. Height is 5 feet 7 inches, weight is 252, BMI is 39. 3. Vital signs 104/53, pulse is 72, respirations 16, oxygen sat is 99. 4. Pain score 9-10. 5. Denies dizziness, does not need any help walking or standing, has not fallen in the last 3 months. 6. The patient is not on any blood thinners, but does take medicine for hypertension. 7. Opioid therapy is greater than 6 weeks; therefore, an opioid signed contract is on the chart. Risk assessment tool is low. Functional assessment is 56/70. [place] [address] PAIN MANAGEMENT CONSULTATION Name: LUPE MICHEL ROSSI [id number] Admission: 02/15/19 Attend Phys: Radha Cerna Discharge: Date of : 88 Report #: [id number] 8. Recreational drug use in the past, current smoker about 3 cigarettes a day and occasionally uses alcohol. According to the prescription monitoring system, the patient is due to fill her medicines next week. We will check a random drug screen on her at her next visit. PHYSICAL EXAMINATION: GENERAL: This is alert and orientated, pleasant 28-year-old female. HEENT: Normocephalic, atraumatic. Extraocular eye muscles are intact. NECK: Without JVD. The patient has good range of motion. EXTREMITIES: The patient has tenderness in her lumbar spine with a Nevro spinal cord stimulator in her back. Her straight leg raise is positive bilaterally. She does have tenderness in her right thigh. The patient walks with a slightly antalgic gait. IMPRESSION: 1. Chronic intractable pain with chronic leg pain. 2. Possible complex regional pain syndrome with spinal cord stimulator, which is beneficial. 3. Morbid obesity. 4. Management of high risk medications under terms of written opioid agreement. PLAN: 1. We discussed treatment options with the patient today. The patient finds her medications helpful, though the last month, she has had a different brand of medications and has not been able to split those as well. She is going to request to return to her previous brand at the pharmacy, which we discussed this today. 2. We reviewed the fact that opiate medications are being used to provide analgesia adequate to support activities of daily living, not attempting to achieve a specific pain score on the 0-10 Visual Analog Scale. The current opiate medications are providing sufficient analgesia to allow the patient to participate in activities of daily living. The patient is not exhibiting any aberrant behavior suggestive of drug diversion. The patient is not having any adverse reactions to medications. The patient is not suffering from daytime somnolence or mental acuity changes. The patient is managing opiate-induced constipation with appropriate hmww-ozk-ryhevsr agents and dietary considerations. The patient was counseled on concern for caution with operating a motor vehicle while using opiate medications. 3. The patient has recently started smoking. I encouraged her to decrease again, though she is smoking 3 cigarettes a day. I encouraged her that she had been off for quite some time and had reported doing quite well. I encouraged her to decrease this again. 4. Scripts will be electronically sent for her oxycodone for 2 months. The patient will fill them next week on 02/22/2019 as well as 03/22/2019. [address] [address] PAIN MANAGEMENT CONSULTATION Name: LUPE MICHEL Room #: REG [facility] Leah#: [id number] Admission: 02/15/19 Attend Phys: Radha Cerna Discharge: Date of : 88 Report #: [id number] 5. The patient is seen in collaboration today with Dr. Rohit Gao. We will check a urine drug screen on her on the next visit randomly. <ELECTRONICALLY SIGNED> By: Radha Cerna 02/16/19 1337 1053 06 Radha Cerna /nt
== END ==
LOC: PAIN 06:53
DX: G89.4 Chronic pain syndrome (principal); E66.09 Other obesity due to excess calories; Z79.891 Long term (current) use of opiate analgesic

== ENCOUNTER → 2019-04-15 | Outpatient (CLI) | payer OTHER, BC ==
[~2019-04-15] VITALS: Ht 170.2 cm; Wt 121.2 kg
[2019-04-15 09:37] VITALS: BP 126/77
--- NOTE | 2019-04-15 09:47 | NUR ---
Pain Clinic Assessment: 1. History of Osteoarthritis: NO History of Rheumatoid Arthritis: NO 2. Height: 5 ft. 7 in. 170.2 cm. Weight: 267.2 lb. oz. 121.201 kg. Patient's BMI: 41.8 3. Vital Signs: BP: 126/77 Pulse: 72 Resp: 16 Temp: 02 Sat: 97 ECG Mon: 4. Pain Intensity: 9 5. Fall Risk: Dizziness: N Needs help standing or walking: N Fallen in the last 3 months: Y Fall risk comments: 6. Patient on Blood Thinner: None 7. History of Hypertension: Y 8. Opioid Therapy greater than 6 weeks: Y Opiate Contract Signed: 12/29/17 9. Risk Assessment Tool Provided: 3-LOW RISK 10. Functional Assessment Tool: 11. Recreational Drug Use: Past greater than 3 mos Drug Type: Tobacco Use: Current Some Day Smoker Tobacco Type: Cigarettes Amount or Packs/day: 0.5/DAY How Many Years: Alcohol Use: Yes Frequency: Special Occasions Quant: RARELY
--- NOTE | 2019-04-15 15:22 | HPC ---
[facility] [address] [address] PAIN MANAGEMENT CONSULTATION Name: LUPE MICHEL Room #: REG TRICIA Lalito.#: [id number] Admission: 04/15/19 Attend Phys: Radha Cerna Discharge: Date of : 88 Report #: [id number] THIS REPORT FOR: cc: NORMA ORDONEZ CANDICE J. FNP Hocker, Amanda CNS ~ DATE OF SERVICE: 04/15/2019 CHIEF COMPLAINT: Chronic intractable pain and complex regional pain syndrome. HISTORY OF PRESENT ILLNESS: This is a 28-year-old female who is quite tearful during our visit today. She is reporting that she is in significant pain. She fell in early March and hurt her right leg and back. She did not seek any medical attention. She reports that since that time, she has had to take 3 of her pain pills oxycodone 10/325 a day due to the increase pain. She reports that she has one pill left today, which is slightly early. She is reporting a pain score of 9/10 today, again it is located in her lower back and right thigh. She reports it is a burning, aching pain. Riding in the car, cold weather and housework does make her pain worse. She does have a spinal cord stimulator Nevro device and did not seek any help from a Nevro Rep since her fall. She is unsure if her device was broken or has moved. She is here today requesting refills and increase in her pain pills. ALLERGIES: MORPHINE. CURRENT LIST OF MEDICATIONS: Oxycodone 10/325 p.r.n., clonazepam, naproxen, Tylenol Extra Strength, amitriptyline, Depakote, labetalol, Cymbalta, Remeron. PQRS: 1. She denies any osteoarthritis or rheumatoid arthritis. 2. Height is 5 feet 7 inches, weight is 267, BMI is 41. 3. Vital Signs: 126/77, pulse is 72, respirations 16, oxygen sat is 97. 4. Pain score is 9/10. Denies any dizziness, does not need help walking or standing. She has fallen in the last 3 months. The patient is not on any blood thinners, but does take medicine for hypertension. Her opioid therapy is greater than 6 weeks; therefore, an opioid signed contract is on the chart. Risk assessment tool is low. Functional assessment is 56/70. She has recreational drug use in the past. She does smoke cigarettes, a half a pack a day and drinks alcohol only on special occasions. According to the prescription monitoring system, the patient's fills from our physician only. We will obtain a urine drug screen on this patient today. It has been greater than a year since her last random screen. PHYSICAL EXAMINATION: [address] [address] PAIN MANAGEMENT CONSULTATION Name: LUPE MICHEL ROSSI Room #: REG [facility].#: [id number] Admission: 04/15/19 Attend Phys: Radha Cerna Discharge: Date of : 88 Report #: [id number] GENERAL: This is alert and orientated, tearful 28-year-old depressed female, rating her pain score at 9/10 today. HEENT: Normocephalic, atraumatic. Extraocular eye muscles are intact. Eyes are red in from crying. NECK: Without JVD or adenopathy. EXTREMITIES: She has tenderness in her lumbar spine. She has a Nevro spinal cord stimulator present in her right buttock. She has pain in the anterior and posterior right thigh. It does not radiate past her knee. Straight leg raising is positive on the right. She walks with an antalgic gait. IMPRESSION: 1. Chronic intractable pain with chronic leg pain. 2. Possible complex regional pain syndrome with spinal cord stimulator Nevro device. 3. Morbid obesity. 4. Depression. 5. Management of high risk medications under terms of written opioid agreement. We reviewed the fact that opiate medications are being used to provide analgesia adequate to support activities of daily living, not attempting to achieve a specific pain score on the 0-10 Visual Analog Scale. The current opiate medications are providing sufficient analgesia to allow the patient to participate in activities of daily living. The patient is not exhibiting any aberrant behavior suggestive of drug diversion. The patient is not having any adverse reactions to medications. The patient is not suffering from daytime somnolence or mental acuity changes. The patient is managing opiate-induced constipation with appropriate yiie-jrz-egnjyyz agents and dietary considerations. The patient was counseled on concern for caution with operating a motor vehicle while using opiate medications. PLAN: 1. We discussed treatment options with the patient today. I encouraged the patient when she does have a significant fall that she does need to seek medical attention. I explained to her that her spinal cord stimulator leads could have moved or been damaged in the very hard fall. We did obtain a fluoroscopy x-ray today and spoke with a Nevro device, who did come and see the patient and reprogrammed her. She feels that the device leads have slipped slightly from implantation date. She did give the patient new programs to use to hopefully treat her pain better. 2. I explained to the patient that we will not be increasing her oxycodone keeping her at 2-1/2 tablets a day, but we will allow her to fill them today. The Percocet 10, #75 for today and 4-week release will be sent electronically by Dr. Rohit Gao, as I stated she may pick those up today. 3. I encouraged the patient to take her Aleve 2 tablets in the morning and 2 tablets at night. This is a therapeutic medication that is not upsetting her stomach. I explained to her no additional Advil or ibuprofen products [facility] [address] [place] [address] PAIN MANAGEMENT CONSULTATION Name: LUPE MICHEL Room #: REG [facility] Leah#: [id number] Admission: 04/15/19 Attend Phys: Radha Cerna Discharge: Date of : 88 Report #: [id number] throughout the day. The patient may also take Tylenol Extra Strength, no more than 5 tablets in a day if she is having increased pain. 4. I encouraged the patient to be as active as she is able to now that the weather is getting nicer outside. The patient in the past had walked between her and her mother's home. I encouraged her to start this process again. 5. The patient will be seen in 2 months. The patient was seen today in collaboration with Dr. Rohit Gao. <ELECTRONICALLY SIGNED> By: Radha Cerna 04/15/19 1522 [id number] Radha Cerna /rubi
== END ==
LOC: PAIN 06:44
DX: G90.529 Complex regional pain syndrome I of unspecified lower limb (principal); F32.9 Major depressive disorder, single episode, unspecified; E66.01 Morbid (severe) obesity due to excess calories; Z88.6 Allergy status to analgesic agent; Z79.899 Other long term (current) drug therapy

== ENCOUNTER → 2019-06-07 | Outpatient (CLI) | payer OTHER, BC ==
[~2019-06-07] MED LIST changes: +DEPAKOTE ER500 M1 PO; -DEPAKOTE ER500 MG PO
--- NOTE | 2019-06-09 14:05 | HPC ---
[facility] [address] [place] [address] PAIN MANAGEMENT CONSULTATION Name: LUPE MICHEL Room #: REG TRICIA Lalito.#: [id number] Admission: 06/07/19 Attend Phys: Radha Cerna Discharge: Date of : 88 Report #: [id number] THIS REPORT FOR: cc: NORMA ORDONEZ CANDICE J. FNP Hocker, Amanda CNS ~ CC: Rohit Gao MD DATE OF SERVICE: 06/07/2019 CHIEF COMPLAINT: Chronic intractable pain with complex regional pain syndrome. HISTORY OF PRESENT ILLNESS: This is a 28-year-old female who I am speaking with via telephone for a teleconference today from 2:00 to 2:15. The patient does live quite a ways away and with a COVID virus, she has been worried about leaving her home to come to the [facility]; therefore, we are doing a telemedicine phone conference today. Today, the patient reports her pain score is 6-7/10, which is slightly lower than normal since she did not have to drive to the city, which does aggravate her pain in her right thigh. She reports it is a burning, electrocuting painful sensation. She does use her spinal cord stimulator every day. At her last visit, we had the Nevro rep reprogram her. She is on a continual program currently and she feels that this change has been helpful. She reports she does notice an increase in pain if she lets her spinal cord stimulator battery run dry, so she does charge it on a daily basis. Today, she is not complaining of any constipation or daytime sleepiness. The patient is requesting to have her medication fill today or tomorrow because she states she is going out of town to [place] to see grandmother despite the COVID virus. When I questioned her how long she was going to be gone, she reported that she was unsure of the length of her visit. ALLERGIES: MORPHINE. CURRENT LIST OF MEDICATIONS: Oxycodone 10/325, clonazepam, naproxen, Tylenol Extra Strength, amitriptyline, Depakote, labetalol, Cymbalta and Remeron. PATIENT'S PQRS: 1. She denies any osteo or rheumatoid arthritis. 2. Height and weight and vital signs were deferred since it was a telemedicine conference. 3. Pain score, a 6-7 today. The patient denies any dizziness. She does not need help walking or standing. She has not fallen in the last 3 months. 4. The patient is not on any blood thinners and she does take medicine for hypertension. 5. Opioid therapy is greater than 6 weeks; therefore, an opioid signed contract is on the chart. Her risk assessment tool is [place] [address] PAIN MANAGEMENT CONSULTATION Name: LUPE MICHEL ROSSI Room #: REG CL Leah#: [id number] Admission: 06/07/19 Attend Phys: Radha Cerna Discharge: Date of : 88 Report #: [id number] 56/70. 6. She has used recreational drug use in the past. She continues to smoke about half a pack of cigarettes a day and does drink alcohol only on special occasions. According to the prescription monitoring system, there is no report due to her county not reporting, we did call her pharmacy, they reported that she filled 03/22/2019, 04/13/2019, and 05/13/2019 with no other opioids. The patient has been filling all of her prescriptions early. There is a random drug screen on the chart that is appropriate for her medications. PHYSICAL EXAMINATION: GENERAL: This is done via review of systems since this is a telemedicine appointment. She is alert and orientated, answering all my questions appropriately in a timely fashion. The patient states she has no problems seeing. She does complain of tenderness in her right thigh and burning. She has a Nevro spinal cord stimulator in her buttocks on the right side, per her report. She tells me she has been ambulating, walking at home and an outside. IMPRESSION: 1. Chronic intractable pain with chronic leg pain. 2. Possible complex regional pain syndrome with spinal cord stimulator, Nevro device. 3. Morbid obesity. 4. Depression. 5. Management of high risk medications under terms of written opioid agreement. We reviewed the fact that opiate medications are being used to provide analgesia adequate to support activities of daily living, not attempting to achieve a specific pain score on the 0-10 Visual Analog Scale. The current opiate medications are providing sufficient analgesia to allow the patient to participate in activities of daily living. The patient is not exhibiting any aberrant behavior suggestive of drug diversion. The patient is not having any adverse reactions to medications. The patient is not suffering from daytime somnolence or mental acuity changes. The patient is managing opiate-induced constipation with appropriate kezi-kqj-tqhcpzc agents and dietary considerations. The patient was counseled on concern for caution with operating a motor vehicle while using opiate medications. PLAN: 1. We discussed treatment options with the patient today. The patient finds her medications very beneficial as well as her spinal cord stimulator device. Her pain is actually decreased slightly today than when she normally comes for her visits on this telemedicine appointment. She states that it is because she did not need to drive to the city, which does increase her pain. 2. The patient is requesting an early refill of her medications. She states [facility] [address] [place] [address] PAIN MANAGEMENT CONSULTATION Name: LUPE MICHEL Room #: REG [facility] M.Jose.#: [id number] Admission: 06/07/19 Attend Phys: Radha DOMO [place] Discharge: Date of : 88 Report #: [id number] she is going out of town. I questioned this since it is locked down for STEVEN, but she is reporting she is going to see her grandmother and will be seeing only at her house. I explained to her that I will need to call the pharmacy and see when she filled her medications. I do remember that she filled them early in April. According to the pharmacy, she filled her medicines on 04/13/19 and 05/13/2019. According to our records, she should not have been due for her medicines on those intervals, currently with her last fill on 05/13/2019, which should have taken place on 05/19/2019. She should have enough medicines to last until 06/17/2019. So, it was decided that we would go ahead and authorize a refill tomorrow and have written on the script that the next fill will not be until 07/15/2019. Based on these dates that she has filled, her medicines should last until that time, 75 pills is a 30-day supply. I did explain to the patient on the phone that her dates will be altered for her second fill. 3. The patient's visit was via telephone today for her telemedicine appointment and Dr. Gao collaborated care in the clinic as well. The patient will return in our clinic for a visit in the end of July or early August. <ELECTRONICALLY SIGNED> By: Radha Cerna 06/09/19 1405 1514 1630 Radha Cerna /nt
== END ==
LOC: TELEPC 07:01 → PAIN 13:23 → TELEPC 15:02
DX: G89.4 Chronic pain syndrome (principal); G90.50 Complex regional pain syndrome I, unspecified; Z79.891 Long term (current) use of opiate analgesic; Z88.5 Allergy status to narcotic agent

== ENCOUNTER → 2019-08-12 | Outpatient (CLI) | payer BC, OTHER ==
[~2019-08-12] VITALS: Ht 170.2 cm; Wt 122.1 kg
[~2019-08-12] MED LIST changes: +AMITRIPTYLINE H25 M3 PO; +MINIPRESS2 MG PO
[2019-08-12 08:52] VITALS: BP 130/73
--- NOTE | 2019-08-12 09:01 | NUR ---
Pain Clinic Assessment: 1. History of Osteoarthritis: NO History of Rheumatoid Arthritis: NO 2. Height: 5 ft. 7 in. 170.2 cm. Weight: 269.2 lb. oz. 122.109 kg. Patient's BMI: 42.2 3. Vital Signs: BP: 130/73 Pulse: 75 Resp: 16 Temp: 02 Sat: 95 ECG Mon: 4. Pain Intensity: 8 5. Fall Risk: Dizziness: N Needs help standing or walking: N Fallen in the last 3 months: Y Fall risk comments: 6. Patient on Blood Thinner: None 7. History of Hypertension: Y 8. Opioid Therapy greater than 6 weeks: Y Opiate Contract Signed: 12/29/17 9. Risk Assessment Tool Provided: 3-LOW RISK 10. Functional Assessment Tool: 11. Recreational Drug Use: Past greater than 3 mos Drug Type: Tobacco Use: Current Some Day Smoker Tobacco Type: Amount or Packs/day: COUPLE DAILY How Many Years: Alcohol Use: Yes Frequency: Special Occasions Quant:
--- NOTE | 2019-08-17 07:58 | HPC ---
[facility] [address] [place] [address] PAIN MANAGEMENT CONSULTATION Name: LUPE MICHEL Room #: REG TRICIA Lalito.#: [id number] Admission: 08/12/19 Attend Phys: Radha Cerna Discharge: Date of : 88 Report #: [id number] THIS REPORT FOR: cc: NORMA ORDONEZ CANDICE J. FNP Hocker, Amanda CNS ~ CC: Rohit Gao MD DATE OF SERVICE: 08/12/2019 CHIEF COMPLAINT: Chronic intractable pain with complex regional pain syndrome. HISTORY OF PRESENT ILLNESS: This is a 28-year-old female who is well known to the pain clinic who is here today for a refill of her opioid medications that she takes for her ongoing complex regional pain syndrome in her right thigh. Today, she is also complaining of low back pain. She has fallen 2 times since we have last seen her. Once she fell out of the shower and did hit her back on the wall, bruised it quite significantly and has had increased pain. She also fell over her cat, but was not injured. The patient also reports that her spinal cord stimulator wall adapter broke and she had been without it for 2 weeks. During that time period, her pain had increased quite significantly. It is working again. She realized just how much benefit she was getting from her spinal cord stimulator during that time. Today, the patient complains of a pain score of 8/10 in her lower back and right thigh. It is an aching, burning pain, worse with weather changes and housework as well as riding in a car. She feels the medications are beneficial as well as her spinal cord stimulator. The patient also reports today she has some changes in her medications, especially at bedtime. She has been unable to sleep very well. Her psychiatrist, Dr. Art has added some new medications for night terrors. During this time, she has been taking less clonazepam and is aware of the opioid, benzodiazepine interaction. She states she is not taking those together and feels that overall she is sleeping better. ALLERGIES: MORPHINE. CURRENT LIST OF MEDICATIONS: Prazosin 2 mg at bedtime, amitriptyline 25 mg in the morning, oxycodone 10/325 p.r.n., clonazepam 0.5 p.r.n., amitriptyline 100 mg at bedtime, Depakote 500 mg daily, labetalol 100 mg b.i.d., Cymbalta 120 mg daily and mirtazapine 30 mg at bedtime. PQRS: 1. She denies any rheumatoid or osteoarthritis. 2. Height is 5 feet 7 inches, weight is 269, BMI is 42. 3. Vital signs, 130/79, pulse is 75, respirations 16, oxygen sat is 95, pain score is 8/10. [facility] [address] [place] [address] PAIN MANAGEMENT CONSULTATION Name: LUPE MICHEL Room #: REG [facility].#: [id number] Admission: 08/12/19 Attend Phys: Radha Cerna Discharge: Date of : 88 Report #: [id number] 4. Fall risk. Denies dizziness, does not need help walking or standing. Has fallen in the last 3 months, but did not seek medical attention. The patient is not on any blood thinners, but does take medicine for hypertension. Her opioid therapy is greater than 6 weeks; therefore, an opioid signed contract is on the chart. Risk assessment is low. Functional assessment is 56/70. 5. Recreational drug use in the past. She is a current smoker of a couple cigarettes a day and does drink alcohol occasionally. PHYSICAL EXAMINATION: GENERAL: This is an alert and orientated, well-developed, obese 28-year-old female who is slightly upbeat today with no crying episodes noted, rating her pain score at 8/10. HEENT: Normocephalic, atraumatic. Extraocular eye muscles are intact. She is wearing a mask. NECK: Supple with no adenopathy. EXTREMITIES: She has ongoing pain in her right thigh and tenderness in her lumbar back that is tender. Her neurostimulator lead is in her upper thoracic region. Straight leg raising, pain is present bilaterally, increased on the right. We did check the patient's prescription monitoring system. The patient is filling appropriately from her pharmacy. She is due to fill her medications today, filling them in a timely fashion. She is on several medications for sleep, quite a list of polypharmacy. We did discuss the opioid, benzodiazepine interactions. The patient reports she does not take them together. IMPRESSION: 1. Chronic intractable pain with chronic leg pain. 2. Possible complex regional pain syndrome with spinal cord stimulator, Nevro device for her right thigh. 3. Morbid obesity. 4. Depression. 5. Management of high risk medications under written opioid agreement. We reviewed the fact that opiate medications are being used to provide analgesia adequate to support activities of daily living, not attempting to achieve a specific pain score on the 0-10 Visual Analog Scale. The current opiate medications are providing sufficient analgesia to allow the patient to participate in activities of daily living. The patient is not exhibiting any aberrant behavior suggestive of drug diversion. The patient is not having any adverse reactions to medications. The patient is not suffering from daytime somnolence or mental acuity changes. The patient is managing opiate-induced constipation with appropriate liti-ynk-qsqqydd agents and dietary considerations. The patient was counseled on concern for caution with operating a motor vehicle while using opiate medications. [facility] [address] [place] [address] PAIN MANAGEMENT CONSULTATION Name: LUPE MICHEL Room #: REG [facility].#: [id number] Admission: 08/12/19 Attend Phys: Radha Cerna Discharge: Date of : 88 Report #: [id number] PLAN: 1. We discussed treatment options with the patient today. The patient has a new [employer]tronic charging device. She was without her stimulator for a couple of weeks, did have increased pain. She now appreciates that it is helpful in helping control her right thigh pain. 2. We will refill her opioid medications of oxycodone 10/325. The patient instructed to take half to one tablet, quantity 75 given for a 30-day supply. We will write prescriptions for today and 4-week release. These will be given by Dr. Gianfranco Aquino who is covering today for Dr. Gao and is collaborating care with me today. 3. The patient will return in 2 months for followup visit. <ELECTRONICALLY SIGNED> By: Radha Cerna 08/17/19 0758 [id number] 0948 Radha Cerna /nt
== END ==
LOC: PAIN 06:44
PROVIDERS: ATTEND Clinical Nurse Specialist Adult Health
DX: G89.4 Chronic pain syndrome (principal); F32.9 Major depressive disorder, single episode, unspecified; Z88.5 Allergy status to narcotic agent; E66.01 Morbid (severe) obesity due to excess calories; F11.20 Opioid dependence, uncomplicated; M96.1 Postlaminectomy syndrome, not elsewhere classified; M79.609 Pain in unspecified limb; Z79.899 Other long term (current) drug therapy

== ENCOUNTER → 2019-10-04 | Outpatient (CLI) | payer BC, OTHER ==
[~2019-10-04] VITALS: Ht 170.2 cm; Wt 120.7 kg
[~2019-10-04] MED LIST changes: +PERCOCET 10-321 EAC1 PO
[2019-10-04 09:29] VITALS: BP 128/74
--- NOTE | 2019-10-04 09:40 | NUR ---
Pain Clinic Assessment: 1. History of Osteoarthritis: BACK KNEE History of Rheumatoid Arthritis: NO 2. Height: 5 ft. 7 in. 170.2 cm. Weight: 266.0 lb. oz. 120.657 kg. Patient's BMI: 41.7 3. Vital Signs: BP: 128/74 Pulse: 71 Resp: 18 Temp: 02 Sat: 96 ECG Mon: 4. Pain Intensity: 8 5. Fall Risk: Dizziness: N Needs help standing or walking: N Fallen in the last 3 months: N Fall risk comments: 6. Patient on Blood Thinner: None 7. History of Hypertension: Y 8. Opioid Therapy greater than 6 weeks: Y Opiate Contract Signed: 12/29/17 9. Risk Assessment Tool Provided: 3-LOW RISK 10. Functional Assessment Tool: 11. Recreational Drug Use: Past greater than 3 mos Drug Type: Tobacco Use: Current Every Day Smoker Tobacco Type: Cigarettes Amount or Packs/day: 1/2 PACK/DAY How Many Years: Alcohol Use: Yes Frequency: Weekly Quant: 2
--- NOTE | 2019-10-04 14:46 | HPC ---
[facility] [place] [address] PAIN MANAGEMENT CONSULTATION Name: LUPE MICHEL Room #: REG TRICIA Lalito.#: [id number] Admission: 10/04/19 Attend Phys: Radha Cerna Discharge: Date of : 88 Report #: [id number] THIS REPORT FOR: cc: NORMA ORDONEZ CANDICE J. FNP Hocker, Amanda CNS ~ CC: Rohit Gao MD DATE OF SERVICE: 10/04/2019 CHIEF COMPLAINT: Chronic intractable pain with complex regional pain syndrome. HISTORY OF PRESENT ILLNESS: This is a 28-year-old female who returns to the pain clinic today for a refill of her opioid medications. She is also requesting an increase in her oxycodone tablets. She would like to decrease some of her nighttime medication and she believes that she would be able to decrease these medications if she would have an increase in her opioid medications. The patient is on several centrally acting medications for her psychiatric history and depression and she does see a psychologist on a regular basis. The patient is reporting a pain score of 8/10 today, located in her low back and thighs. It is a burning, aching feeling, worse with riding in the car and colder weather. She feels that the spinal cord stimulator that she uses, her Nevro device 24 hours a day is very beneficial as well as resting. She tries to space her house work to prevent aggravating her pain. She does take her medications and finds they are beneficial with limited or minimal side effects of constipation or daytime somnolence. ALLERGIES: MORPHINE. CURRENT LIST OF MEDICATIONS: Minipress 2 mg, amitriptyline 25 mg in the morning and 100 mg at night, Percocet 10/325 up to 3 times a day, clonazepam, Aleve, Tylenol Extra Strength, Depakote, labetalol, Cymbalta and Remeron. PQRS: 1. She has osteoarthritis in her knees and her back. Denies any rheumatoid arthritis. 2. Height is 5 feet 7 inches, weight is 266, BMI is 41. 3. Vital signs; blood pressure 128/74, pulse is 71, respirations 18, oxygen sat is 96. 4. Pain score is 8/10. 5. Denies dizziness, does not need help walking or standing, has not fallen in the last 3 months. 6. The patient is not on any blood thinners, but does take medicine for hypertension. Opioid therapy is greater than 6 weeks; therefore, an opioid [address] [address] PAIN MANAGEMENT CONSULTATION Name: LUPE MICHEL Room #: REG [facility]#: [id number] Admission: 10/04/19 Attend Phys: Radha Cerna Discharge: Date of : 88 Report #: [id number] signed contract is on the chart. Risk assessment is low. Functional assessment is 56/70. 7. Recreational drug use is greater than 3 months. She is a current tobacco smoker of cigarettes every day and does drink alcohol. According to the prescription monitoring system and discussion with her local pharmacy [facility], her last prescription fill was 09/09/2019 and previous to that was 08/12/2019 PHYSICAL EXAMINATION: GENERAL: This is alert and orientated, morbidly obese 28-year-old who is rating her pain score at 8/10 today. HEENT: Normocephalic, atraumatic. Extraocular eye muscles are intact. Sclerae are nonintrinsic. She is wearing a mask. EXTREMITIES: She has pain across her lumbosacral region and pain in her bilateral thighs, greater on the right. Straight leg raising does increase her pain. Her straight leg raising is positive. She has a neurostimulator present and well-healed scars in her back. IMPRESSION: 1. Chronic intractable pain with chronic leg pain. 2. Possible complex regional pain syndrome requiring spinal cord stimulator device. 3. Morbid obesity. 4. Depression and anxiety. 5. Management of high risk medications under terms of written opioid agreement. We reviewed the fact that opiate medications are being used to provide analgesia adequate to support activities of daily living, not attempting to achieve a specific pain score on the 0-10 Visual Analog Scale. The current opiate medications are providing sufficient analgesia to allow the patient to participate in activities of daily living. The patient is not exhibiting any aberrant behavior suggestive of drug diversion. The patient is not having any adverse reactions to medications. The patient is not suffering from daytime somnolence or mental acuity changes. The patient is managing opiate-induced constipation with appropriate kpqe-bng-duiwkxt agents and dietary considerations. The patient was counseled on concern for caution with operating a motor vehicle while using opiate medications. A physical exam was performed and the patient's functional status was evaluated. All patients with back pain were advised against the bed rest greater than 4 days and were advised to return to normal activities. Pain score assessment was noted and the treatment plan was reviewed with the patient. All current medications, both prescribed and OTC were reviewed and reconciled on the electronic medical record. Tobacco screening was accomplished and smoking cessation was advised when indicated. BMI was noted and diet/exercise [address] [address] PAIN MANAGEMENT CONSULTATION Name: LUPE MICHEL Room #: REG CLDeborah Lynn#: [id number] Admission: 10/04/19 Attend Phys: Radha Cerna Discharge: Date of : 88 Report #: [id number] modification was recommended for all patients following outside normal parameters. I reviewed with the patient today their responsibilities to safeguard prescription medications, reviewed their responsibility to utilize medications only as prescribed by the physician. They are to seek and receive pain medications only from 1 physician group ( [facility]). They are to use 1 pharmacy and keep the clinic informed if they change pharmacies. Their responsibilities include making followup visits in a timely fashion and to avoid abrupt discontinuation of medication usage. Their responsibilities further include bringing their medications (bottles from the pharmacy with residual pills) to the visit for possible confirmation of pill counts and the patient understands it is their responsibility to submit to random drug screens to ensure both that the medications prescribed are present, and that no other controlled substances are present. All prescriptions provided today were generated electronically. PLAN: 1. We discussed treatment options with the patient today. The patient is requesting an increase in her opioid medications. I explained to her that at her age of 28 our goal is to use the lowest most effective dose of opioids and to continue to wean her down off these medications. She is on several centrally acting medications and our goal is not to add to this. We discussed possible decrease of her Remeron from 30 mg to 15 mg. She is to ask her psychologist if this is agreeable. I believe that she gains benefit of her amitriptyline that helps with her neuropathic pain as well as her sleeping issues and I would continue on that medication. 2. I encouraged the patient to try and be as active as she is able and to discuss with Diana narayan different programs that may help keeping her active with less pain and also they may adjust her device that she has different programs for sleep. 3. We will refill her oxycodone 10/325, the to take a half to one tablet up to 3 times a day. She is allowed 75 tablets in 1 month and may be released this 10/08/2019 and again on 11/05/2019. Patient to be followed up in 2 months. 4. We did discuss smoking cessation. If the patient is able to stop smoking we beleive that her pain may be decreased as well. The patient is to consider this. 5. The patient is seen in collaboration with Dr. Rohit Gao who did see the patient as well today. <ELECTRONICALLY SIGNED> By: Radha Cerna 10/04/19 1446 [id number] Radha Cerna /nt
== END ==
LOC: PAIN 06:55
PROVIDERS: ATTEND Clinical Nurse Specialist Adult Health
DX: G89.4 Chronic pain syndrome (principal); M79.606 Pain in leg, unspecified; E66.9 Obesity, unspecified; F41.8 Other specified anxiety disorders; F11.20 Opioid dependence, uncomplicated; Z88.8 Allergy status to other drugs, medicaments and biological substances; Z79.899 Other long term (current) drug therapy

== ENCOUNTER → 2019-12-06 | Outpatient (CLI) | payer OTHER ==
[~2019-12-06] VITALS: Ht 170.2 cm; Wt 123.6 kg
[~2019-12-06] MED LIST changes: +DEPAKOTE 250MG250 MG PO
[2019-12-06 10:23] VITALS: BP 125/75
--- NOTE | 2019-12-06 10:41 | NUR ---
Pain Clinic Assessment: 1. History of Osteoarthritis: BACK KNEE History of Rheumatoid Arthritis: NO 2. Height: 5 ft. 7 in. 170.2 cm. Weight: 272.4 lb. oz. 123.560 kg. Patient's BMI: 42.7 3. Vital Signs: BP: 125/75 Pulse: 87 Resp: 16 Temp: 02 Sat: 96 ECG Mon: 4. Pain Intensity: 9 5. Fall Risk: Dizziness: N Needs help standing or walking: N Fallen in the last 3 months: Y Fall risk comments: 6. Patient on Blood Thinner: None 7. History of Hypertension: Y 8. Opioid Therapy greater than 6 weeks: Y Opiate Contract Signed: 12/29/17 9. Risk Assessment Tool Provided: 3-LOW RISK 10. Functional Assessment Tool: 11. Recreational Drug Use: Past greater than 3 mos Drug Type: Tobacco Use: Current Every Day Smoker Tobacco Type: Cigarettes Amount or Packs/day: 1/2 How Many Years: 10 Alcohol Use: Yes Frequency: Weekly Quant: 2-3
--- NOTE | 2019-12-07 13:41 | HPC ---
[facility] [place] [address] PAIN MANAGEMENT CONSULTATION Name: LUPE MICHEL Room #: REG TRICIA Lalito.#: [id number] Admission: 12/06/19 Attend Phys: Radha Cerna Discharge: Date of : 88 Report #: [id number] CC: Radha Gao MD DATE OF SERVICE: 12/06/2019 CHIEF COMPLAINT: Chronic intractable pain with complex regional pain syndrome. HISTORY OF PRESENT ILLNESS: This is a 29-year-old female who returns to the pain clinic today to discuss her chronic pain issues. Today, she is reporting a pain score of 9/10, which is slightly higher than her normal in her right thigh and also complaining of pain in her right hip. She reports that she had fallen a couple of times in the last week and [place] today states that her hip has been hurting from her falls. She usually uses a cane or occasionally a walker in inclement weather, though she is not using that today. She states that it is a burning soreness and occasional aching. Her pain is usually worse upon riding in a car and colder weather. She has been using her spinal cord stimulator and her medications and does find those beneficial. She would like refills of her oxycodone today. ALLERGIES: MORPHINE. CURRENT LIST OF MEDICATIONS: Depakote, Percocet 10/ p.r.n., Minipress, amitriptyline, clonazepam, Aleve, labetalol, Cymbalta and Remeron. PQRS: 1. She has osteoarthritis in her back and knees. Denies any rheumatoid arthritis. 2. Height is 5 feet 7 inches, weight is 272, BMI is 42. 3. Vital signs, blood pressure 125/75, pulse is 87, respirations 16, and oxygen sat is 96%. Pain score is 9/10. 4. Fall risk. Denies dizziness. Does use assistance with walking at times and has fallen in the last 3 months. The patient is not on any blood thinners, but does take medicine for hypertension. Her opioid therapy is greater than 6 weeks; therefore, an opioid signed contract is on the chart. Risk assessment is low. Functional assessment is 56/70. 5. Recreational drug use in the past. She is a current smoker, half a pack of cigarettes a day and does drink alcohol. According to the prescription monitoring, she is filling appropriately for her medications. She is due to fill her medications this week, filling them in a timely fashion. Her morphine milliequivalent according to the CDC guidelines is 37 and there is a drug screen on the chart that is appropriate for her medications as well. PHYSICAL EXAMINATION: GENERAL: This is alert and orientated, morbidly obese 38-year-old female who is well-developed, well-nourished, rating her pain score at 9/10 today. HEENT: Normocephalic, atraumatic. Extraocular eye muscles are intact. Sclerae are nonintrinsic. She is wearing a mask. EXTREMITIES: Pain is in her lumbosacral region that radiates into her bilateral thighs, right greater than left. Also experiencing right hip pain with a small ecchymosis area. Able to move in all range of motions without difficulty, though does increase pain. Straight leg raising is positive on the right. She has a normal spinal cord stimulator present, well-healed scars in her back. Lower extremity strength is diminished on the right when compared to the left at 4/5. IMPRESSION: 1. Chronic intractable pain with chronic leg pain. 2. Possible complex regional pain syndrome requiring spinal cord stimulator device. 3. Morbid obesity. 4. Depression and anxiety. 5. Management of high risk medications under terms of written opioid agreement. We reviewed the fact that opiate medications are being used to provide analgesia adequate to support activities of daily living, not attempting to achieve a specific pain score on the 0-10 Visual Analog Scale. The current opiate medications are providing sufficient analgesia to allow the patient to participate in activities of daily living. The patient is not exhibiting any aberrant behavior suggestive of drug diversion. The patient is not having any adverse reactions to medications. The patient is not suffering from daytime somnolence or mental acuity changes. The patient is managing opiate-induced constipation with appropriate swom-tjg-gypybzh agents and dietary considerations. The patient was counseled on concern for caution with operating a motor vehicle while using opiate medications. PLAN: 1. We discussed treatment options with the patient today. The patient reports she has been falling, which is according to her report typical of this time of year when it is colder. She feels that she does not move as well. We did briefly discuss if she does continue to fall, we may order an MRI, but therefore we would then think about treatment options, whether it be in the form of epidurals or have her see the neurosurgeon again. At this time, the patient is not interested in having another x-ray. She reports she will start using her cane. This should help with some of her ambulatory issues. She does have decreased strength on the right side. 2. Upon examining her today, she does have inflammation from her falls, but is able to move all of her extremities. I do not beleive an xray is warranted at this time but if her pain worses or she continues to fall, I encouraged her to seek medical attention. 3. We will send her medications to her pharmacy of oxycodone , #75, this is to last her for 1-month intervals today and 4 weeks supply released. 4. I encouraged the patient to stop smoking. We have had this discussion multiple times in regards to her pain. We also discussed exercising and we are aware that it is difficult with the colder weather, but encouraged her to be as active as possible at least inside. Her weight has increased 7 pounds since our last visit in September. 5. The patient is seen today in collaboration with Dr. Rohit Gao. <ELECTRONICALLY SIGNED> By: Radha Cerna 12/07/19 1341 [id number] Radha Cerna /rubi
== END ==
LOC: PAIN 06:47
PROVIDERS: ATTEND Clinical Nurse Specialist Adult Health
DX: G89.4 Chronic pain syndrome (principal); F11.20 Opioid dependence, uncomplicated; E66.01 Morbid (severe) obesity due to excess calories; F41.8 Other specified anxiety disorders; Z88.5 Allergy status to narcotic agent; Z79.899 Other long term (current) drug therapy

== ENCOUNTER → 2020-01-31 | Outpatient (CLI) | payer BC, OTHER ==
[~2020-01-31] MED LIST changes: -AMITRIPTYLINE H50 M2 PO; +AMITRIPTYLINE H75 M2 PO; +PROPRANOLOL HCL60 M1 PO
--- NOTE | 2020-02-01 09:10 | HPC ---
[facility] [place] [address] PAIN MANAGEMENT CONSULTATION Name: LUPE MICHEL Room #: [facility] [id number] Admission: 01/31/20 Attend Phys: aRdha Cerna Discharge: Date of : 88 Report #: [id number] THIS REPORT FOR: cc: NORMA ORDONEZ CANDICE J. FNP Hocker, Amanda CNS ~ DATE OF SERVICE: 01/31/2020 This is a telemedicine appointment that I am speaking due to exposure for COVID virus from 9:15 to 9:35. CHIEF COMPLAINT: Chronic intractable pain with complex regional pain syndrome. HISTORY OF PRESENT ILLNESS: I am speaking with the patient via the telephone today for a Telemed appointment due to exposure of COVID. She is going to be tested this afternoon. She currently reports having chest discomfort and cough, headache and has had a low-grade fever. The patient complains of pain score of 6-7 today in her right thigh and low back. She has been utilizing her spinal cord stimulator at all times. She reports that her pain is slightly lower today because driving typically increases her pain and since we are doing a Telemed, it is lower today, cold weather does increase her pain as well. Overall, she reports doing quite well with her current oxycodone medication. She would like to have a refill today. She is going to the pharmacy to be tested for her COVID symptoms. The patient does report being admitted to a psych facility for a short duration and they adjusted some of her medications and according to the prescription monitoring system provided her with clonazepam and oxycodone. She reports she was unable to take any medicines at home. It was for use only while she was inpatient. She has several changes in her medications due to this recent hospitalization for her anxiety. ALLERGIES: MORPHINE. CURRENT LIST OF MEDICATIONS: Depakote, Percocet, prazosin, amitriptyline, propranolol, labetalol, Cymbalta and Remeron. PQRS: 1. She has osteoarthritis in her knees and back. Denies any rheumatoid arthritis. 2. Height, weight and vital signs are deferred due to a Telemed appointment. Pain score is 6 to 7. Dizziness, she denies. She has not fallen in the last 3 months. She does not need help walking. 3. The patient is not on any blood thinners, but does take medicine for hypertension. Opioid therapy is greater than 6 weeks; therefore, an opioid [address] [address] PAIN MANAGEMENT CONSULTATION Name: LUPE MICHEL [id number] Admission: 01/31/20 Attend Phys: Radha Cerna Discharge: Date of : 88 Report #: [id number] signed contract is on the chart. Risk assessment is low. Functional assessment is 56/70. 4. Recreational drug use in the past. She is currently smoking 1-2 cigarettes a day and occasionally drinks alcohol. According to the prescription monitoring system, there is a prescription filled from her site inpatient stay. The patient does admit to those medications, but did not take them home. Otherwise, she is filling her medications appropriately. PHYSICAL EXAMINATION: Deferred. This is a review of systems. She is alert and oriented, morbidly obese female who is answering all my questions appropriately, stating her pain is 6-7 located in her low back that radiates into her right thigh. IMPRESSION: 1. Chronic intractable pain with chronic leg pain. 2. Possible complex regional pain syndrome requiring spinal cord stimulator device. 3. Morbid obesity. 4. Depression and anxiety with recent hospitalizations. 5. Possible COVID exposure. 6. Management of high risk medications under terms of written opioid agreement. PLAN: 1. We discussed treatment options with the patient today. The patient does find her oxycodone 10/325 beneficial, taking half to one tablet up to 3 times a day. She is requesting a refill today since she is going to her pharmacy. I explained to her that if we release early today, we will adjust her second prescription dates accordingly to her last fill, still allowing her only 75 per month. The patient is agreeable with this plan of care. We will call the pharmacy for exact dates prior to sending these medications. 2. The patient is experiencing COVID symptoms. She has been testing today. I encouraged her to call our office with the results whether she is positive or negative, so we can keep a record. 3. I encouraged the patient to continue to try and decrease smoking and does interfere with her opioid medications and her overall pain receptors. The patient states she feels better while she is not smoking and she will continue to try and decrease. 4. The patient is seen today in collaboration with Dr. Aquino who is covering for Dr. Gao. [address] [place] [address] PAIN MANAGEMENT CONSULTATION Name: LUPE MICHEL Room #: REG TRICIA Lynn#: [id number] Admission: 01/31/20 Attend Phys: Radha Cerna Discharge: Date of : 88 Report #: [id number] Thank you for Telemed. <ELECTRONICALLY SIGNED> By: Radha Cerna 02/01/20 0910 [id number] Radha Cerna /nt
== END ==
LOC: TELEPC 06:53 → PAIN 07:37 → TELEPC 07:38 → PAIN 13:47
PROVIDERS: ATTEND Clinical Nurse Specialist Adult Health
DX: G89.4 Chronic pain syndrome (principal); E66.01 Morbid (severe) obesity due to excess calories; F41.8 Other specified anxiety disorders; F11.20 Opioid dependence, uncomplicated; Z88.8 Allergy status to other drugs, medicaments and biological substances; Z79.899 Other long term (current) drug therapy

== ENCOUNTER → 2020-04-03 | Outpatient (CLI) | payer OTHER ==
[~2020-04-03] VITALS: Ht 170.2 cm; Wt 121.1 kg
[~2020-04-03] MED LIST changes: +NAPROSYN500 M1 PO
[2020-04-03 08:32] VITALS: BP 117/76
--- NOTE | 2020-04-03 08:39 | NUR ---
Pain Clinic Assessment: 1. History of Osteoarthritis: BACK KNEE History of Rheumatoid Arthritis: NO 2. Height: 5 ft. 7 in. 170.2 cm. Weight: 267.0 lb. oz. 121.111 kg. Patient's BMI: 41.8 3. Vital Signs: BP: 117/76 Pulse: 78 Resp: 16 Temp: 02 Sat: 97 ECG Mon: 4. Pain Intensity: 8 5. Fall Risk: Dizziness: N Needs help standing or walking: N Fallen in the last 3 months: N Fall risk comments: 6. Patient on Blood Thinner: None 7. History of Hypertension: Y 8. Opioid Therapy greater than 6 weeks: Y Opiate Contract Signed: 12/29/17 9. Risk Assessment Tool Provided: 3-LOW RISK 10. Functional Assessment Tool: / 11. Recreational Drug Use: Past greater than 3 mos Drug Type: Tobacco Use: Current Every Day Smoker Tobacco Type: Amount or Packs/day: 1/2 PACK How Many Years: Alcohol Use: Yes Frequency: Weekly Quant: 1
== END ==
LOC: PAIN 06:55
PROVIDERS: ATTEND Clinical Nurse Specialist Adult Health
DX: G89.4 Chronic pain syndrome (principal); E66.01 Morbid (severe) obesity due to excess calories; F41.8 Other specified anxiety disorders; F11.20 Opioid dependence, uncomplicated; F17.200 Nicotine dependence, unspecified, uncomplicated; Z88.8 Allergy status to other drugs, medicaments and biological substances; Z79.899 Other long term (current) drug therapy

== ENCOUNTER → 2020-05-29 | Outpatient (CLI) | payer OTHER ==
[~2020-05-29] VITALS: Ht 170.2 cm; Wt 119.8 kg
[~2020-05-29] MED LIST changes: +CYMBALTA30 MG PO
[2020-05-29 09:02] VITALS: BP 137/89
--- NOTE | 2020-05-29 09:27 | NUR ---
Pain Clinic Assessment: 1. History of Osteoarthritis: BACK KNEE History of Rheumatoid Arthritis: NO 2. Height: 5 ft. 7 in. 170.2 cm. Weight: 264.2 lb. oz. 119.841 kg. Patient's BMI: 41.4 3. Vital Signs: BP: 137/89 Pulse: 78 Resp: 16 Temp: 02 Sat: 987 ECG Mon: 4. Pain Intensity: 8-9 5. Fall Risk: Dizziness: N Needs help standing or walking: N Fallen in the last 3 months: Y Fall risk comments: 6. Patient on Blood Thinner: None 7. History of Hypertension: Y 8. Opioid Therapy greater than 6 weeks: Y Opiate Contract Signed: 12/29/17 9. Risk Assessment Tool Provided: LWO-1 10. Functional Assessment Tool: 11. Recreational Drug Use: Past greater than 3 mos Drug Type: Tobacco Use: Current Every Day Smoker Tobacco Type: Cigarettes Amount or Packs/day: 1/2 PACK How Many Years: 15 Alcohol Use: Yes Frequency: Weekly Quant: 4
== END ==
LOC: PAIN 06:55
PROVIDERS: ATTEND Clinical Nurse Specialist Adult Health
DX: G89.4 Chronic pain syndrome (principal); E66.01 Morbid (severe) obesity due to excess calories; F17.200 Nicotine dependence, unspecified, uncomplicated; F32.9 Major depressive disorder, single episode, unspecified; F41.9 Anxiety disorder, unspecified; Z79.899 Other long term (current) drug therapy; Z88.5 Allergy status to narcotic agent; Z79.891 Long term (current) use of opiate analgesic

== ENCOUNTER → 2020-07-17 | Outpatient (CLI) | payer OTHER ==
[~2020-07-17] VITALS: Ht 170.2 cm; Wt 120.3 kg
[2020-07-17 09:08] VITALS: BP 123/79
--- NOTE | 2020-07-17 09:21 | NUR ---
Pain Clinic Assessment: 1. History of Osteoarthritis: BACK KNEE History of Rheumatoid Arthritis: NO 2. Height: 5 ft. 7 in. 170.2 cm. Weight: 265.2 lb. oz. 120.294 kg. Patient's BMI: 41.5 3. Vital Signs: BP: 123/79 Pulse: 65 Resp: 16 Temp: 02 Sat: 95 ECG Mon: 4. Pain Intensity: 7-8 5. Fall Risk: Dizziness: N Needs help standing or walking: N Fallen in the last 3 months: N Fall risk comments: 6. Patient on Blood Thinner: None 7. History of Hypertension: Y 8. Opioid Therapy greater than 6 weeks: Y Opiate Contract Signed: 12/29/17 9. Risk Assessment Tool Provided: low-1 10. Functional Assessment Tool: / 11. Recreational Drug Use: Past greater than 3 mos Drug Type: Tobacco Use: Current Every Day Smoker Tobacco Type: Cigarettes Amount or Packs/day: 1 pack How Many Years: 15 Alcohol Use: Yes Frequency: Weekly Quant: 2-3
== END ==
LOC: PAIN 06:59
PROVIDERS: ATTEND Clinical Nurse Specialist Adult Health
DX: G89.4 Chronic pain syndrome (principal); M79.606 Pain in leg, unspecified; E66.01 Morbid (severe) obesity due to excess calories; F32.9 Major depressive disorder, single episode, unspecified; F41.9 Anxiety disorder, unspecified; Z79.891 Long term (current) use of opiate analgesic; Z79.899 Other long term (current) drug therapy

== ENCOUNTER → 2020-09-26 | Outpatient (CLI) | payer OTHER | LOC: TELEPC 07:08 | PROVIDERS: ATTEND Clinical Nurse Specialist Adult Health | DX: G89.4 Chronic pain syndrome (principal); M79.605 Pain in left leg; M79.604 Pain in right leg; E66.01 Morbid (severe) obesity due to excess calories; F32.9 Major depressive disorder, single episode, unspecified; F41.9 Anxiety disorder, unspecified; Z79.891 Long term (current) use of opiate analgesic; Z79.899 Other long term (current) drug therapy ==

== ENCOUNTER → 2020-11-23 | Outpatient (CLI) | payer OTHER ==
[~2020-11-23] VITALS: Ht 170.2 cm; Wt 121.3 kg
[2020-11-23 09:10] VITALS: BP 120/71
--- NOTE | 2020-11-23 09:21 | NUR ---
Pain Clinic Assessment: 1. History of Osteoarthritis: BACK KNEE History of Rheumatoid Arthritis: NO 2. Height: 5 ft. 7 in. 170.2 cm. Weight: 267.4 lb. oz. 121.292 kg. Patient's BMI: 41.9 3. Vital Signs: BP: 120/71 Pulse: 62 Resp: 16 Temp: 02 Sat: 98 ECG Mon: 4. Pain Intensity: 8 5. Fall Risk: Dizziness: N Needs help standing or walking: N Fallen in the last 3 months: Y Fall risk comments: 6. Patient on Blood Thinner: None 7. History of Hypertension: Y 8. Opioid Therapy greater than 6 weeks: Y Opiate Contract Signed: 12/29/17 9. Risk Assessment Tool Provided: low-1 10. Functional Assessment Tool: / 11. Recreational Drug Use: Past greater than 3 mos Drug Type: Tobacco Use: Current Every Day Smoker Tobacco Type: Cigarettes Amount or Packs/day: 1/2 PACK How Many Years: Alcohol Use: Yes Frequency: Weekly Quant: 2
== END ==
LOC: PAIN 06:50
PROVIDERS: ATTEND Anesthesiology Pain Medicine
DX: G89.29 Other chronic pain (principal); M79.604 Pain in right leg; M79.605 Pain in left leg; E66.01 Morbid (severe) obesity due to excess calories; Z79.899 Other long term (current) drug therapy; Z88.8 Allergy status to other drugs, medicaments and biological substances

== ENCOUNTER → 2021-01-18 | Outpatient (CLI) | payer OTHER ==
[~2021-01-18] VITALS: Ht 172.7 cm; Wt 120.2 kg
[2021-01-18 09:49] VITALS: BP 146/89
--- NOTE | 2021-01-18 09:51 | NUR ---
Pain Clinic Assessment: 1. History of Osteoarthritis: BACK KNEE History of Rheumatoid Arthritis: NO 2. Height: 5 ft. 8 in. 172.7 cm. Weight: 265.0 lb. oz. 120.204 kg. Patient's BMI: 40.3 3. Vital Signs: BP: 146/89 Pulse: 84 Resp: 16 Temp: 02 Sat: 97 ECG Mon: 4. Pain Intensity: 8 5. Fall Risk: Dizziness: N Needs help standing or walking: N Fallen in the last 3 months: Y Fall risk comments: 6. Patient on Blood Thinner: None 7. History of Hypertension: Y 8. Opioid Therapy greater than 6 weeks: Y Opiate Contract Signed: 12/29/17 9. Risk Assessment Tool Provided: low-1 10. Functional Assessment Tool: 56/ 11. Recreational Drug Use: Past greater than 3 mos Drug Type: Tobacco Use: Current Every Day Smoker Tobacco Type: Cigarettes Amount or Packs/day: 1/2 pack How Many Years: Alcohol Use: No Frequency: Quant:
== END ==
LOC: PAIN 09:02
PROVIDERS: ATTEND Clinical Nurse Specialist Adult Health
DX: G89.29 Other chronic pain (principal); M79.604 Pain in right leg; M79.605 Pain in left leg; E66.09 Other obesity due to excess calories; F17.200 Nicotine dependence, unspecified, uncomplicated; Z88.8 Allergy status to other drugs, medicaments and biological substances; Z79.899 Other long term (current) drug therapy

== ENCOUNTER → 2021-03-19 | Outpatient (CLI) | payer OTHER ==
[~2021-03-19] VITALS: Ht 170.2 cm; Wt 122.4 kg
[2021-03-19 09:16] VITALS: BP 122/78
--- NOTE | 2021-03-19 09:39 | NUR ---
Pain Clinic Assessment: 1. History of Osteoarthritis: BACK KNEE History of Rheumatoid Arthritis: NO 2. Height: 5 ft. 7 in. 170.2 cm. Weight: 269.8 lb. oz. 122.381 kg. Patient's BMI: 42.2 3. Vital Signs: BP: 122/78 Pulse: 72 Resp: 16 Temp: 02 Sat: 99 ECG Mon: 4. Pain Intensity: 8 5. Fall Risk: Dizziness: N Needs help standing or walking: N Fallen in the last 3 months: Y Fall risk comments: 6. Patient on Blood Thinner: None 7. History of Hypertension: Y 8. Opioid Therapy greater than 6 weeks: Y Opiate Contract Signed: 12/29/17 9. Risk Assessment Tool Provided: low-1 10. Functional Assessment Tool: 56/ 11. Recreational Drug Use: Past greater than 3 mos Drug Type: Tobacco Use: Current Every Day Smoker Tobacco Type: Cigarettes Amount or Packs/day: 1 pack How Many Years: 15 Alcohol Use: No Frequency: Quant:
== END ==
LOC: PAIN 03-12 12:34 → TELEPC 07:03
PROVIDERS: ATTEND Clinical Nurse Specialist Adult Health
DX: G89.29 Other chronic pain (principal); G90.59 Complex regional pain syndrome I of other specified site; E66.01 Morbid (severe) obesity due to excess calories; M54.50 Low back pain, unspecified; Z88.6 Allergy status to analgesic agent; Z79.899 Other long term (current) drug therapy